=== PATIENT | female | born 1975 | race Caucasian/White ===

== ENCOUNTER → 2018-05-27 11:44 | Outpatient (CLI) | payer BC, SELFPAY ==
[2018-05-27 10:58] VITALS: BMI 27.8
[2018-05-27 14:48] LABS: Cholesterol 232 mg/dL (200); Estradiol 63.1 pg/mL; Follicle Stimulating Hormone 10.8 mIU/mL; Glucose 87 mg/dL (74-106); High Density Lipoprotein 57 mg/dL; Thyroid Stim Hormone (TSH) 1.88 uIU/mL (0.358-3.74); Triglycerides 50 mg/dL; Very Low Density Lipoprotein 10 mg/dL (5-40)
[2018-05-29 15:23] LABS: Vitamin D 1,25-Dihydroxy 53.7 pg/mL (19.9-79.3)
[2018-06-02 12:36] LABS: HPV APTIMA, High Risk Negative (Negative)
--- OUTSIDE RECORDS SUMMARY | 2018-08-28 21:14 | XMS RPT_ITS ---
:1975 Author Organization OHIP Care Team Providers Name Role Phone Anastacia Brooks Attending Unavailable Primay Care Physicia, No Referring Unavailable Anastacia Brooks Attending Unavailable Primay Care Physicia, No Primary Care Unavailable Dino Jenkins Attending Unavailable Primay Care Physicia, No Referring Unavailable Primay Care Physicia, No Primary Care Unavailable Dino Jenkins Attending Unavailable Primay Care Physicia, No Referring Unavailable Primay Care Physicia, No Primary Care Unavailable Dino Jenkins Attending Unavailable Primay Care Physicia, No Referring Unavailable Primay Care Physicia, No Primary Care Unavailable PROBLEMS PROBLEMS DATE TYPE CONDITION / CODE ATTENDING STATUS SOURCE 05/27/2018 Unknown N95.1 - Menopausal Marcanthphoebe, Active [place]mond and female [facility] climacteric states / Hospital N95.1(ICD-10) Repository 05/27/2018 Unknown Z01.411 - Encounter Todd, Active Almond for gynecological [facility] examination (general) Hospital (routine) with Repository abnormal findings / Z01.411(ICD-10) 05/27/2018 Unknown N39.3 - Stress Marcanthony, Active [place] incontinence (female) [facility] (male) / Hospital N39.3(ICD-10) Repository 05/27/2018 Unknown N90.89 - Other Marcanthony, Active Ana specified [facility] noninflammatory Hospital disorders of vulva Repository and perineum / N90.89(ICD-10) 12/06/2017 Unknown M54.9 - Dorsalgia, Gregory Dino Active Ana unspecified / Community M54.9(ICD-10) Hospital Repository 12/06/2017 Unknown L25.9 - Unspecified Gregory Dino Active [place] contact dermatitis, Community unspecified cause / Hospital L25.9(ICD-10) Repository 12/06/2017 Unknown S39.012A - Strain of Dino Jenkins Active [place] muscle, fascia and Community tendon of lower back, Hospital initial encounter / Repository S39.012A(ICD-10) PROCEDURES PROCEDURES No Procedure Records FoundRESULTS RESULTS LIPID PROFILE Collected: 05/27/2018 Status: F Source: ANA 11:57 AM [facility] HOSPITAL REPOSITORY TYPE CODE TESTS RESULT OUT OF RANGE REFERENCE UNITS LAB L501.4900 200 mg/dL High CHOL 232 Result Comment: <200 mg/dL Desirable 200-240 mg/dL Borderline >240 mg/dL High Risk LAB L501.5000 mg/dL Normal TRIG 50 Result Comment: The drugs N-Acetylcysteine and Metamizole may falsely depress this assay. Serum Triglycerides Reference Interval Normal <150 mg/dL Borderline high 150 - 199 mg/dL High 200 - 499 mg/dL Very High > or = 500 mg/dL LAB L501.6400 mg/dL Normal HDL 57 Result Comment: The drugs N-Acetylcysteine and Metamizole may falsely depress this assay. Reference Range HDL <40 mg/dL Low HDL Cholesterol HDL >or= 60 mg/dL High HDL Cholesterol LAB L501.6500 0-130 mg/dL High LDL 165 LAB L501.6600 5-40 mg/dL Normal VLDL 10 Performed By: #### L500.4100, L501.0100, L501.9520, L3100.5125, L3300.1750 #### [facility] [address] [place], [address] GLUCOSE Collected: 05/27/2018 Status: F Source: [facility] 11:57 AM [facility] REPOSITORY TYPE CODE TESTS RESULT OUT OF RANGE REFERENCE UNITS LAB L501.0100 74-106 mg/dL Normal GLU 87 Result Comment: Please note revised GLUCOSE reference range effective 2017. Performed By: #### L500.4100, L501.0100, L501.9520, L3100.5125, L3300.1750 #### [facility] [address] [place], [place], [id number] THYROID STIM HORMONE Collected: 05/27/2018 Status: F Source: [facility] ([facility]) 11:57 AM [facility] REPOSITORY TYPE CODE TESTS RESULT OUT OF RANGE REFERENCE UNITS LAB L501.9520 0.358-3.74 uIU/mL Normal TSH 1.88 Performed By: #### L500.4100, L501.0100, L501.9520, L3100.5125, L3300.1750 #### [facility] [address] [place], [address] FOLLICLE STIMULATING Collected: 05/27/2018 Status: F Source: [facility] HORMONE 11:57 AM [facility] REPOSITORY TYPE CODE TESTS RESULT OUT OF RANGE REFERENCE UNITS LAB L3100.5125 mIU/mL Normal FSH 10.8 Result Comment: NORMAL REFERENCE RANGES FEMALE FOLLICULAR 2.3 - 12.6 mIU/mL MID-CYCLE PEAK 5.2 - 17.5 mIU/mL LUTEAL 1.7 - 12.9 mIU/mL POST-MENOPAUSAL ON MHT 5.9 - 72.8 mIU/mL NOT ON MHT 12.7 - 132.2 mlU/mL MALE 0.7 - 10.8 mIU/mL NEW TEST METHOD AND REFERENCE RANGES OCTOBER 29, 2011 Performed By: #### L500.4100, L501.0100, L501.9520, L3100.5125, L3300.1750 #### [facility] [address] [place], [place], [id number] ESTRADIOL Collected: 05/27/2018 Status: F Source: [facility] 11:57 AM [facility] REPOSITORY TYPE CODE TESTS RESULT OUT OF RANGE REFERENCE UNITS LAB L3300.1750 pg/mL Normal ESTRADIOL 63.1 Result Comment: NORMAL REFERENCE RANGES FEMALE FOLLICULAR 21.4 - 164.8 pg/mL MID-CYCLE PEAK 49.9 - 367.2 pg/mL LUTEAL 40.2 - 259.0 pg/mL POST-MENOPAUSAL ON MHT <11.0 - 462.1 pg/mL NOT ON MHT <11.0 - 58.3 pg/mL MALE <11.0 - 52.5 pg/mL NOTE: [facility] HAS CONFIRMED THE DRUG FULVETRANT (FASLODEX) MAY CAUSE FALSELY ELEVATED ESTRADIOL RESULTS WHEN USING THIS TEST METHOD. IF PATIENT IS TAKING FULVESTRANT AN ALTERNATIVE METHOD SHOULD BE USED TO DETERMINE ESTRADIOL CONCENTRATION. Performed By: #### L500.4100, L501.0100, L501.9520, L3100.5125, L3300.1750 #### [facility] [address] [place], [place], [address] VITAMIN D 1,25-DIHYDROXY Collected: 05/27/2018 Status: F Source: [facility] 11:57 AM [facility] REPOSITORY TYPE CODE TESTS RESULT OUT OF RANGE REFERENCE UNITS LAB L3300.0960 19.9-79.3 pg/mL Normal VITD 1,25 53.7 22168 Result Comment: Performed at: - [facility] [address] [id number] Allied Health Instructor: Debbi Quiros MD, Phone: [phone] Performed By: #### L3300.0960 #### [facility] (refer to report for specific site) refer to report for address and phone number CAPTAIN WAITER/WAITRESS OFFICE VISIT Observed: 05/27/2018 Status: F Source: [facility] REPORT 11:42 AM [facility] REPOSITORY [facility] [place] [address] [place] [address] OFFICE VISIT Date of Service: 05/27/18 MR#: [id number] Acct: [id number] Name: MATTEO GLEASON Rep #: [id number] : 1975 Provider: Anastacia Brooks MD Age/Sex: 42/F Location: [facility] Status: Signed Intake Vital Signs05/27/18 Height 5 ft 3 in 05/27/18 Weight: 157 lb 05/27/18 Body Mass Index (BMI) 27.8 05/27/18 Blood Pressure 138/76 H Intake Visit Reasons: ANNUAL Chief Complaint: est annual Supervisor Twisting Department Required: No Is patient in pain?: No Allergies Opioids - Morphine Analogues Allergy (Verified 05/27/18 10:58) Itching Penicillins Allergy (Verified 05/27/18 10:58) Anaphylaxis MOST PAIN MEDS Adverse Reaction (Uncoded 05/27/18 10:58) Itching Is last menstrual period known: No Post menopausal: No Patient : No : No PFSH Medical History History of PCOS (Acute) History of back problems (Acute) History of headache (Acute) Incontinence (Acute) SOB (shortness of breath) (Acute) Severe headache (Acute) Surgical History H/O tubal ligation (Acute) History of wisdom tooth extraction, class II edentulism (Acute) History of carpal tunnel release (Acute) History of endometrial ablation (Acute) Family History Mother Heart disease Other Cancer Social History Smoking Status: Current every day smoker alcohol intake: current details: social substance use type: does not use caffeine: Yes what type of physical activity do you participate in: none seatbelt use: always do you feel safe at home: Yes additional social history: [employer] [place] Patient is laid off for the winter Pregancy History 4 Elective abortions Hx Para 2 Spontaneous abortions Past Pregnancies Del. DatName GA/WeeksOutcome [facility] Loca[facility]B e ht en ia tn Unknown 1998 Sandra ge Unknown 2003 Gra yson HPI ANNUAL: Details: MATTEO GLEASON is a 42 year old who presents for annual exam. she is struggling with menopausal symptoms. Last PAP: 17 nl History of abnormal PAP: no Last mammogram: ordered History of abnormal mammogram: no Colon cancer screening: Other preventative health care screenings: no Female Reproductive History Cycle Length: >35 Bleeding Duration: 0 Questions: Metorrhagia: No, Sexually active: Yes, Dyspareunia: Yes, PCB: No Menopausal Symptoms: Yes hot flashes, Yes night sweats, Yes weight change, Yes mood changes, Yes difficulty concentrating, Yes sleep problems, No change in libido ROS Const Constitutional: Reports as per HPI and night sweats; denies poor appetite, fatigue, increased appetite, weight gain or weight loss Cardio Card: Denies chest pain Resp Resp: Denies dyspnea or cough GI GI: Reports as per HPI; denies bloating, abdominal pain, constipation, vomiting or nausea : Reports as per HPI, urinary incontinence (stress incontinence. ), other and hot flashes; denies blood in urine, vaginal odor, vaginal itching, vaginal dryness, vaginal discharge (stress), urinary urgency, urinary frequency, pelvic pain, painful urination, difficulty urinating, prolapse symptoms or nipple discharge Skin Skin/Breast: Denies breast pain, breast skin changes, nipple discharge, breast lump or changing lesions Psych Psych: Reports difficulty concentrating; denies change in sex drive Exam Const General: cooperative, healthy appearing, comfortable, no acute distress, well developed, well groomed [facility] Head: normal to inspection, normocephalic Ears: hearing grossly normal bilaterally, external ears normal Nose: external nose normal Face and sinus: normal facial exam Neck Neck: normal visual inspection, full ROM, no lymphadenopathy Thyroid: thyroid normal Chest Chest palpation AND inspection: normal inspection of the chest Breast inspection: normal inspection of the breasts, normal inspection of the axillae Breast palpation: normal palpation of the breasts, normal palpation of the axillae, no axillary lymphadenopathy Resp Effort AND Inspection: normal respiratory effort GI Inspection: normal to inspection, non-distended Palpation: no guarding, soft, no hepatosplenomegaly General: bladder normal to palpation External Female Exam: normal appearance of the urethra, external lesions (right labial pigmented lesions) Urethra: normal appearance of the urethra, normal palpation Speculum Exam - Vagina: normal appearance of the vagina, normal vaginal discharge Speculum Exam - Cervix: normal appearance of the cervix, no cervical discharge, no lesions, nontender Bimanual Exam- Vagina AND Uterus: No cervical tenderness, normal bimanual exam, uterine size normal, bladder normal to palpation, uterine mobility normal, uterine consistency normal, uterus non-tender, no cervical motion tenderness Bimanual Exam- Adnexa, other: normal adnexae, no adnexal masses, adnexae non-tender Skin General: no rashes or lesions noted Neuro General: alert, moves all extremities, no focal motor deficits Extrem General: no pedal edema, normal to inspection Psych Appearance: grossly normal Mental Status: mental status grossly normal Affect: normal affect Speech and Movement: speech and movement normal Attitude: cooperative Assessment AND Plan Problems 1. Climacteric N95.1 fsh estradiol checked, recommend HRT 2. Encounter for gynecological examination with abnormal finding Z01.411 3. Stress incontinence N39.3 urogyn referral 4. Vulvar lesion N90.89 recommend biopsy Plan Cervical cancer screening: pap hpv 2017 nl vulvar biopsy needed discussed risks, benefits, and alternatives for management of symptoms and patient chooses to remain on HRT. discussed with the patient I will continue to prescribe the lowest dose needed to manage symptoms for the duration of desired therapy. will address annually regarding necessity. Breast cancer screening: mamm other health maintenance examination reviewed and orders placed if needed. Encouraged maintenance of a healthy weight and active lifestyle and handout given. Annual exam handout including recommendations for good health guidelines, Calcium/vitamin D recommendations, and basic screening information given. Problem list up to date, see problem list details for any additional plan information. Follow up in one year for annual health maintenance exam or sooner if needed. Orders Orders: Coding Level of Care Code Off vis,est,prev 40-64yrs Diagnoses Climacteric N95.1 Encounter for gynecological examination with abnormal finding Z01.411 Gynecological examination findings: abnormal findings PRESENT Stress incontinence N39.3 Vulvar lesion N90.89 05/27/18 1142 <Electronically signed by Anastacia Brooks MD> Date Anastacia Brooks MD Cosigner Signature: Date (if applicable) CC: PAP IG HPV APTIMA Collected: 05/27/2018 Status: F Source: ANA 16/18,45 11:00 AM [facility] REPOSITORY Order Comment: CYTOLOGY INFORMATION: - CLINICAL INFORMATION: ANNUAL - DATE LMP/MENOPAUSE: N/A - COLLECTION VIAL: Thin Prep Vial - CHARGEMASTER ANALYST SOURCE: CERVICAL - COLLECTION TECHNIQUE: CX BROOM ONLY Specimen Comment: [id number] Specimen Comment: Source.............Cervix Specimen Comment: No. of containers..01 ThinPrep Vial TYPE CODE TESTS RESULT OUT OF RANGE REFERENCE UNITS LAB L7400.0800 . Normal DIAGN Comment Result Comment: NEGATIVE FOR INTRAEPITHELIAL LESION AND MALIGNANCY. LAB L7400.0900 . Normal ADEQ Comment Result Comment: Satisfactory for evaluation. Endocervical and/or squamous metaplastic cells (endocervical component) are present. LAB L7400.1400 . Normal PERFORM Comment Result Comment: Addie Silvestre, Pipe Fitter Maintenance (ASCP) LAB L7400.2575 . Normal TEST METHOD Comment Result Comment: This liquid based ThinPrep(R) pap test was screened with the use of an image guided system. LAB L7400.2600 . Normal . COMM LAB L7400.2700 . Normal PAPSMR Comment Result Comment: The Pap smear is a screening test designed to aid in the detection of premalignant and malignant conditions of the uterine cervix. It is not a diagnostic procedure and should not be used as the sole means of detecting cervical cancer. Both false-positive and false-negative reports do occur. LAB L7400.2760 Negative Normal HPV APTIMA, Negative HR Result Comment: This test detects fourteen high-risk HPV types (16/18/31/33/35/39/45/ 51/52/56/58/59/66/68) without differentiation. Performed at: WB - [facility] [address] [id number] Allied Health Instructor: Dorinda Rodriguez MD, Phone: [phone] Performed at: =G - [facility] [address]Br[address] [place], [place] [id number] Allied Health Instructor: Dorinda Rodriguez MD, Phone: [phone] Performed By: #### L7400.0280 #### [facility] (refer to report for specific site) refer to report for address and phone number URGENT CARE VISIT Observed: 12/06/2017 Status: F Source: [facility] REPORT 4:[address] [facility] [address] [place] [address] [address] [place] [address] OFFICE VISIT Date of Service: 12/06/17 MR#: [id number] Acct: [id number] Name: MATTEO GLEASON Rep #: [id number] : 1975 Provider: Dino FABIAN Age/Sex: 42/F Location: [facility] Status: Signed Intake Vital Signs12/06/17 Height 5 ft 4 in Intake Visit Reasons: LOW BACK PAIN Allergies Opioids - Morphine Analogues Allergy (Verified 12/06/17 09:05) Itching Penicillins Allergy (Verified 12/06/17 09:05) Anaphylaxis MOST PAIN MEDS Adverse Reaction (Uncoded 12/06/17 09:05) Itching Medications ibuprofen 200 mg tablet 200 mg PO ONCE 05/13/17 [History Confirmed 12/06/17] cyclobenzaprine 5 mg tablet 5 mg PO TID PRN #30 tab 12/06/17 [Rx Confirmed 12/06/17] prednisone 10 mg tablet 10 mg PO QDAY 12 Days #30 tab 12/06/17 [Rx Confirmed 12/06/17] [facility] Medical History Incontinence (Acute) SOB (shortness of breath) (Acute) Severe headache (Acute) Surgical History History of carpal tunnel release (Acute) History of endometrial ablation (Acute) Tubal ligation status (Acute) Family History Other Cancer Social History Smoking Status: Current every day smoker alcohol intake: never HPI HPI Details: MATTEO GLEASON, is a 42 F who presents to the office today for right-sided low back pain for the past 2 days. Patient reports noticing the pain shortly after getting home from work 2 days ago and has since tried warm compresses as well as ibuprofen and Tylenol for the pain with no relief. She reports her pain as 8-9 out of 10. Patient does report a history of L5 degenerative changes as well as other episodes of low back pain. Additionally she states that she has pain radiating from her back to her right middle thigh however denies any numbness or tingling. She also denies bowel and bladder dysfunction. No other associated symptoms or alleviating/aggravating factors. ROS Const Constitutional: No chills, fever(s), fatigue or abnormal sleep pattern ENT ENT: No neck pain Musc Musculoskeletal: Positive for abnormal walking, back pain and limited range of motion; no deformity, joint swelling, numbness, tingling or neck pain Skin Skin: No wounds or lesions Neuro Neurology: Positive for abnormal walking; no behavioral changes, confusion, numbness or tingling Psych Psychiatric: No behavioral changes, No confusion, No abnormal sleep pattern Endo Endocrine: No fatigue Exam Const General: cooperative, healthy appearing Musc Musculoskeletal: Yes decreased ROM; no joint tenderness Cervical Spine: normal cervical lordosis and cervical ROM normal Thoracic/Lumbar Spine: straight leg raise negative bilaterally Other: Patient uncomfortable from sit to stand position with antalgic gait. Tenderness to palpation of the right lower back lateral to the spine with several small muscle spasms to the right lower back. Limited range of motion due to pain intolerance. Skin General: no rashes or lesions noted Neuro General: alert, CN's II-XI intact bilaterally Psych Appearance: grossly normal Mental Status: mental status grossly normal Office Meds ketorolac Performing Provider: RUI Cotton Administered by: Larissa Rivera on 12/06/17 09:41 Dose Route Admin Location Lot Number Expiration Date NDC Manager Employee Relations 60 mg IM left gluteal [id number] 06/10/19 1098-4773-01 HOSPIRA Assessment AND Plan Problems 1. Strain of lumbar region, initial encounter S39.012A Status Acute Plan Toradol IM in the office with cyclobenzaprine and prednisone as prescribed today. Encouraged to get plenty of rest and use Tylenol or Ibuprofen (unless contraindicated) for comfort. Patient also educated on other symptomatic management techniques. To be seen in 7-10 days if no improvement; sooner if worsening of symptoms. Advised of potential red flags when appropriate report to the ED. Patient verbalized understanding of all the above. This note was generated with eCert dictation software. It may contain incorrect words, spelling, and punctuation that were not noted in checking the note before signing. Orders Orders: Medications New: cyclobenzaprine May take 1-2 tabs 5 mg PO TID PRN muscle spasm S39.012A RUI Cotton every 8 hours as needed Discontinued: ketorolac Discontinued Reason: Office Hsholul00 mg (4 mL) IM ONCE M54.9 Larissa Rivera ion has been Documented as given Coding Level of Care Code Off vis,est,level 3 Diagnoses Strain of lumbar region, initial encounter S39.012A Encounter type: initial encounter 12/06/17 1649 <Electronically signed by Dino FABIAN> Date Dino FABIAN Cosigner Signature: Date (if applicable) CC: URGENT CARE VISIT Observed: 10/15/2017 Status: F Source: [facility] REPORT 12:25 PM [facility] REPOSITORY [facility] [address] [place] [id number] OFFICE VISIT Date of Service: 10/15/17 MR#: [id number] Acct: [id number] Name: MATTEO GLEASON Rep #: [id number] : 1975 Provider: Dino FABIAN Age/Sex: 42/F Location: [facility] Status: Signed Intake Vital Signs10/15/17 Height 5 ft 4 in 10/15/17 Weight: 157 lb 10/15/17 Body Mass Index (BMI) 26.9 10/15/17 Blood Pressure 122/74 Intake Visit Reasons: LEFT FOOT SWELLING Supervisor Twisting Department Required: No Is patient in pain?: Yes Allergies Opioids - Morphine Analogues Allergy (Verified 10/15/17 10:46) Itching Penicillins Allergy (Verified 10/15/17 10:46) Anaphylaxis MOST PAIN MEDS Adverse Reaction (Uncoded 10/15/17 10:46) Itching Medications ibuprofen 200 mg tablet 200 mg PO ONCE 05/13/17 [History Confirmed 10/15/17] PFSH Medical History Incontinence (Acute) SOB (shortness of breath) (Acute) Severe headache (Acute) Surgical History History of carpal tunnel release (Acute) History of endometrial ablation (Acute) Tubal ligation status (Acute) Family History Other Cancer Social History Smoking Status: Current every day smoker alcohol intake: never HPI HPI Details: MATTEO GLEASON, is a 42 F who presents to the office today for left foot pain and swelling for the past week. Patient states that last week she was out gardening and then the next morning started having left foot pain and swelling. She states that the pain and swelling is particularly over the second through fourth metatarsal area. She denies any loss in range of motion or function and is able to ambulate without difficulty. No numbness or tingling. No other associated symptoms or alleviating/aggravating factors. ROS Const Constitutional: No chills, fever(s), fatigue or abnormal sleep pattern Musc Musculoskeletal: Positive for joint pain; no abnormal walking, deformity, radiating pain into limb, tingling or numbness Skin Skin: No wounds or lesions Neuro Neurology: No behavioral changes, confusion, abnormal walking, tingling or numbness Psych Psychiatric: No behavioral changes, No confusion, No abnormal sleep pattern Endo Endocrine: No fatigue Exam Const General: cooperative, healthy appearing Musc Musculoskeletal: Yes joint tenderness; no joint redness, joint warmth or decreased ROM Skin General: no rashes or lesions noted Neuro General: alert, CN's II-XI intact bilaterally Extrem Other: Pain to palpation over the distal left second through fourth metatarsals. No deformity, crepitus or ecchymosis. There is a very mild amount of swelling. Full range of motion and sensation to the foot. Psych Appearance: grossly normal Mental Status: mental status grossly normal Assessment AND Plan Problems 1. Strain of left foot, initial encounter S96.912A Status Acute Plan Patient advised of RICE techniques. Advised to follow-up with PCP or orthopedics in 7-10 days if no better or sooner if worse. Patient advised of potential red flags when appropriate report to the ED. Patient verbalized understanding of all the above. This note was generated with eCert dictation software. It may contain incorrect words, spelling, and punctuation that were not noted in checking the note before signing. Coding Level of Care Code Off vis,est,level 3 Diagnoses Strain of left foot, initial encounter S96.912A Encounter type: initial encounter 10/15/17 1225 <Electronically signed by Dino FABIAN> Date Dino FABIAN Cosigner Signature: Date (if applicable) CC: URGENT CARE VISIT Observed: 08/11/2017 Status: F Source: [facility] REPORT 1:51 PM [facility] [address] [place] [address] OFFICE VISIT Date of Service: 08/11/17 MR#: [id number] Acct: [id number] Name: ROSIBELMATTEO K Rep #: [id number] : 1975 Provider: Dino FABIAN Age/Sex: 41/F Location: [facility] Status: Signed Intake Vital Signs08/11/17 Height 5 ft 4 in Intake Visit Reasons: EARACHE Is patient in pain?: Yes Allergies Opioids - Morphine Analogues Allergy (Verified 08/11/17 13:28) Itching Penicillins Allergy (Verified 08/11/17 13:28) Anaphylaxis MOST PAIN MEDS Adverse Reaction (Uncoded 08/11/17 13:28) Itching Medications ibuprofen 200 mg tablet 200 mg PO ONCE 05/13/17 [History Confirmed 08/11/17] [facility] Medical History Incontinence (Acute) SOB (shortness of breath) (Acute) Severe headache (Acute) Surgical History History of carpal tunnel release (Acute) History of endometrial ablation (Acute) Tubal ligation status (Acute) Family History Other Cancer Social History Smoking Status: Current every day smoker alcohol intake: never HPI HPI Details: MATTEO GLEASON, is a 41 F who presents to the office today for right ear pain for the past 2 days. Patient states that the pain has been increasing and feels as if there is fluid behind her ear drawn. She is concerned for possible ear infection as she has a history of recurrent infections. She denies any otorrhea or hearing change/loss. She denies fever, chills, sweats. No nausea, vomiting, diarrhea. No other associated symptoms or alleviating/aggravating factors. ROS Const Constitutional: No chills, fever(s), fatigue or abnormal sleep pattern ENT ENT: Positive for ear pain and ear pressure; no ear discharge, nasal congestion, nasal discharge or sore throat Resp Respiratory: No shortness of breath or chest congestion Cardio Cardiology: No chest pain at rest, chest pain with exertion or shortness of breath Skin Skin: No wounds or lesions Neuro Neurology: No behavioral changes or confusion Psych Psychiatric: No behavioral changes, No confusion, No abnormal sleep pattern Endo Endocrine: No fatigue Exam Const General: cooperative, healthy appearing [facility] Head: normocephalic, atraumatic Ears: hearing grossly normal bilaterally, TM abnormal with fluid behind the TM on the right, EAC's normal Nose: external nose normal Face and sinus: face symmetric Mouth: oral mucosae normal Throat: posterior oropharynx normal Eyes General: appearance normal, both eyes and all related structures Pupils: PERRL Resp Effort AND Inspection: normal respiratory effort Auscultation: Bilateral: Clear to Auscultation Cardio Rate: regular rate Rhythm: regular rhythm Heart Sounds: S1 normal, S2 normal Skin General: no rashes or lesions noted Neuro General: alert, CN's II-XI intact bilaterally Psych Appearance: grossly normal Mental Status: mental status grossly normal Assessment AND Plan Problems 1. Fluid level behind tympanic membrane of right ear H65.91 Status Acute Plan Patient advised to start taking an antihistamine twice daily as well as Nasacort once daily for the next 7 days. Advised of potential red flags when appropriate report to ED. Patient verbalized understanding of all the above. This note was generated with eCert dictation software. It may contain incorrect words, spelling, and punctuation that were not noted in checking the note before signing. Coding Level of Care Code Off vis,est,level 3 Diagnoses Fluid level behind tympanic membrane of right ear H65.91 08/11/17 1351 <Electronically signed by Dino FABIAN> Date Dino FABIAN Cosigner Signature: Date (if applicable) CC: ALLERGIES ALLERGIES DATE TYPE / CODE NAME / CODE REACTION SEVERITY SOURCE 05/27/2018 Drug Opioids - Itching Unknown Ana Allergy/132766014( Morphine Community SNOMED CT) Analogues/F00 Hospital [id number](RXNOR Repository M) 05/27/2018 Drug Penicillins/F Anaphylaxis Unknown Ana Allergy/175215431( [id number](RXN Community SNOMED CT) ORM) Hospital Repository 05/27/2018 Miscellaneous MOST PAIN Itching Unknown Ana Allergy/428269816( MEDS Community SNOMED CT) Hospital Repository ENCOUNTERS ENCOUNTERS ADMIT/DISCHARGE ACCOUNT ADMITTING ENCOUNTER LOCATION SOURCE NUMBER CLASS 05/27/2018 [id number] Ambulatory Ana Ana 7 [facility] Hospital ing:PAVLAB Repository 05/27/2018/ [id number] Ambulatory BMSBuilding:B Ana 8 3 [facility] Repository 12/06/2017/ [id number] Ambulatory BMSBuilding:B [place] 8 9 [facility] Repository 10/15/2017/ [id number] Ambulatory BMSBuilding:B [place] 8 2 MS[facility] Repository 08/11/2017/ [id number] Ambulatory BMSBuilding:B [place] 8 2 MS.NOW [facility] Repository PAYERS PAYERS ENCOUNTER GUARANTOR PAYER SUBSCRIBER SOURCE 05/27/2018 JOSE J Primary JOSE J [place] [id number] DAYANNA Insurance:ANTHEMPolic WISEDOB: [facility] Number: [id number] Hospital 404[address]Gzb: 330 [id number] Repository [phone] () Date:[id number] [address] [place] [address] 46742SK: 05/27/2018 Secondary NOT GIVENUNK Ana Insurance:SELF PAY [facility] [place] Number: Effective Repository Date:2018-05-27 05/27/2018 JOSE J Primary JOSE J Ana [id number] DAYANNA Insurance:ANTHEMPolic WISEDOB: [facility] Number: [id number] Hospital 557[address]Lwc: (330 [id number] Repository [phone] () Date:[id number], [place] [address]RW: 05/27/2018 Secondary NOT GIVENUNK [place] Insurance:SELF PAY [facility] [place] Number: Effective Repository Date:2018-05-27 12/06/2017 JOSE J Primary JOSE J [place] [id number] DAYANNA Insurance:ANTHEMPolic WISEDOB: [facility] Number: [id number] Hospital [id number]: (330) [id number] Repository [phone] () Date:[id number] [address], [place] [address]DD: 12/06/2017 Secondary NOT GIVENUNK [place] Insurance:SELF PAY [facility] [place] Number: Effective Repository Date:2017-12-06 10/15/2017 JOSE J Primary JOSE J Ana [id number] DAYANNA Insurance:ANTHEMPolic WISEDOB: [facility] Number: [id number] Hospital [address]Hwx: (330 [id number] Repository [phone] () Date:[id number], [place] [address]AI: 10/15/2017 Secondary NOT GIVENUNK [place] Insurance:SELF PAY [facility] [place] Number: Effective Repository Date:2017-10-15 08/11/2017 JOSE J Primary JOSE J Ana [id number] DAYANNA Insurance:ANTHEMPolic WISEDOB: [facility] Number: [id number] Hospital [address]Wgp: (315) [id number] Repository [phone] () Date:[id number], [place] [address]KS: 08/11/2017 Secondary NOT GIVENUNK Ana Insurance:SELF PAY [facility] [place] Number: Effective Repository Date:2017-08-11
== END ==
PROVIDERS: Visit Provider Obstetrics & Gynecology
DX: N95.1 Menopausal and female climacteric states (principal); Z12.4 Encounter for screening for malignant neoplasm of cervix
CPT/HCPCS: 36415; 80061; 82652; 82670; 82947; 83001; 84443; 87624; 88175; G0145

== ENCOUNTER 2018-07-18 16:15 | Emergency (ER) | payer BC, SELFPAY ==
[2018-05-27 10:58] VITALS: BMI 27.8
[2018-07-18 16:16] VITALS: BP 136/70; PULSE 78; RESP 16; TEMP 37.1; O2SAT 100; BMI 28.3
--- NOTE | 2018-07-18 16:42 | CT_ITS ---
STUDY: CT ABDOMEN AND PELVIS WITHOUT CONTRAST REASON FOR EXAM: Female, 42 years old. Right lower quadrant pain RADIATION DOSAGE (If Supplied By Facility): CTDIvol = ( 8.27 ) mGy, DLP = ( 386.48 ) mGycm TECHNIQUE: Transaxial images were obtained from the dome of the diaphragm to the symphysis pubis without oral contrast, and without intravenous contrast. Sagittal and coronal images were reconstructed. Individualized dose optimization techniques were used for this CT. COMPARISON: January 30, 2017 FINDINGS: The visualized lung bases are unremarkable. The visualized portions of the heart are within normal limits. Normal liver. Normal gallbladder and extrahepatic biliary system. Normal spleen. Normal pancreas. Normal bilateral adrenal glands. Normal right kidney. Normal left kidney. Normal visualized stomach. Normal small intestine. Diffuse fecal retention seen within the colon The appendix is visualized and appears normal. Normal abdominal aorta. Normal inferior vena cava. Normal retroperitoneum. The uterus is midline in location depressing the dome of the bladder. There is a Novus ring which appears to be localized to the midline of the pelvis overlying the bladder which was previously seen in the left adnexal region and has possibly migrated or slipped out of position. Clinical correlation is recommended in this regard as to significance of this finding. Normal abdominal wall. Lumbar spine demonstrates mild spondylosis No other significant change since prior exam CT/Abdomen/Pelvis without Cont IMPRESSION: No evidence for hydronephrosis or ureteral calculus. No evidence for acute appendicitis. There is a change in position of previously noted Novus ring possibly representing migration of the ring of uncertain clinical significance. Electronically Signed: Tony Yadav MD at 18:08 EST , Service support ,
[2018-07-18] MEDS: Ondansetron 4 MG/2 ML Vial IV (16:48)
[2018-07-18] MEDS: 0.9% Normal Saline 1,000 ML 1000 ML IV (16:48)
[2018-07-18] MEDS: HYDROmorphone 1 MG/ML Syringe IV (16:50)
--- NOTE | 2018-07-18 16:57 | ED.VISSUMM ---
- ER Visit Summary Date of Service: 07/18/18 Chief Complaint: Abdominal pain History of Present Illness: The patient is a 42 F presenting with right lower quadrant abdominal pain. She states that this started 2 days ago. She states that it suddenly worsened today. She has had nausea and vomiting. She has had constipation. She complains of dysuria. She denies fever. She states she has had ovarian cysts in the past. She tried her son's leftover Percocet prior to arrival with no relief. Denies other complaints. Physical Examination: Vitals are stable. Patient is afebrile. Alert moderate distress. HEENT exam is unremarkable. Neck is supple. Lungs are clear and equal bilaterally. Heart is regular rate and rhythm. Abdomen is soft right lower quadrant tenderness, voluntary guarding, no rebound Extremities are unremarkable. Skin is warm and dry. No focal neurologic deficit. Remainder of exam is unremarkable. Emergency Department Course and Treatment: Patient was given Dilaudid, Zofran. CBC, chemistries unremarkable. Urinalysis unremarkable. CT abdomen pelvis shows no evidence for hydronephrosis or ureteral calculus. No evidence for acute appendicitis. There is a change in position of previously noted Novus ring possibly representing migration of the ring of uncertain clinical significance. Pelvic ultrasound shows no adnexal masses. No contraceptive device identified. Metallic densities evident on CT from earlier today are most compatible with surgical ligation clips, perhaps fallopian tube. Per technologist, patient denies contraceptive ring/no Nuvaring (but reports tubal ligation). Question tubal patency/fertility given midline position of the clips anterior/inferior (between uterus and bladder) to the urinary bladder, and change in position since prior CT of 01/30/2017. Uterine fibroids. On reevaluation, patient has improvement of her pain. Discussed with Dr. Brooks, patient will follow-up in the office. She is advised to return to ED if worsening complaints. Disposition: Discharge home Impression: Abdominal pain This note was generated with [employer] dictation software. It may contain incorrect words, spelling, and punctuation that were not noted in review of the chart prior to signing ED Disposition - Plan for ED Patient: Instructions: ED Abdominal Pain Unkn Cause Prescriptions: Oxycodone HCl/Acetaminophen [Percocet 5/325] 1 tablet PO Q6H PRN PRN 3 Days #12 tablet PRN Reason: Pain Ondansetron [Zofran Odt] 4 mg PO Q8H PRN PRN #10 tablet PRN Reason: Nausea Referrals: Anastacia Brooks MD [STAFF PHYSICIAN] -
--- NOTE | 2018-07-18 17:00 | ED.DCSUM_ITS ---
- ER Visit Summary Date of Service: 07/18/18 Chief Complaint: Abdominal pain History of Present Illness: The patient is a 42 F presenting with right lower quadrant abdominal pain. She states that this started 2 days ago. She states that it suddenly worsened today. She has had nausea and vomiting. She has had constipation. She complains of dysuria. She denies fever. She states she has had ovarian cysts in the past. She tried her son's leftover Percocet prior to arrival with no relief. Denies other complaints. Physical Examination: Vitals are stable. Patient is afebrile. Alert moderate distress. HEENT exam is unremarkable. Neck is supple. Lungs are clear and equal bilaterally. Heart is regular rate and rhythm. Abdomen is soft right lower quadrant tenderness, voluntary guarding, no rebound Extremities are unremarkable. Skin is warm and dry. No focal neurologic deficit. Remainder of exam is unremarkable. Emergency Department Course and Treatment: Patient was given Dilaudid, Zofran. CBC, chemistries unremarkable. Urinalysis unremarkable. CT abdomen pelvis shows no evidence for hydronephrosis or ureteral calculus. No evidence for acute appendicitis. There is a change in position of previously noted Novus ring possi shawna representing migration of the ring of uncertain clinical significance. Pelvic ultrasound shows no adnexal masses. No contraceptive device identified. Metallic densities evident on CT from earlier today are most compatible with surgical ligation clips, perhaps fallopian tube. Per technologist, patient denies contraceptive ring/no Nuvaring (but reports tubal ligation). Question t ubal patency/fertility given midline position of the clips anterior/inferior (between uterus and bladder) to the urinary bladder, and change in position since prior CT of 01/30/2017. Uterine fibroids. On reevaluation, patient has improvement of her pain. Discussed with Dr. Brooks, patient will follow-up in the office. She is advised to return to ED if worsening complaints. Disposition: Discharge home Impression: Abdominal pain This note was generated with [employer] dictation software. It may contain incorrect words, spelling, and punctuation that were not noted in review of the chart prior to signing ED Disposition - Plan for ED Patient: Instructions: ED Abdominal Pain Unkn Cause Prescriptions: Oxycodone HCl/Acetaminophen [Percocet 5/325] 1 tablet PO Q6H PRN PRN 3 Days #12 tablet PRN Reason: Pain Ondansetron [Zofran Odt] 4 mg PO Q8H PRN PRN #10 tablet PRN Reason: Nausea Referrals: Anastacia Brooks MD [STAFF PHYSICIAN] -
[2018-07-18 17:08] LABS: Anion Gap 10 (5-15); BUN 14 mg/dL (7-18); Calcium,Total 9.1 mg/dL (8.5-10.1); Chloride 108 mmol/L (98-107); Creatinine, Serum 0.87 mg/dL (0.55-1.02); EST Glomerular Filtration Rate 75 mL/min (>60); Est Glom Filt Rate - Afr Amer 91 mL/min (>60); Estimated Creatinine Clearance 68.97 ml/min; Glucose 100 mg/dL (74-106); Potassium 3.7 mmol/L (3.5-5.1); Sodium Level 139 mmol/L (136-145)
[2018-07-18 17:11] LABS: Absolute Lymphocyte Count 1.74 X10^3/ul (0.83-4.51); Absolute Neutrophil Count 8.3 X10^3/uL (2.0-7.7); Basophil# 0.04 X10^3/uL; Basophil% 0.4 % (0-1); Eosinophil# 0.13 X10^3/uL; Eosinophils% 1.2 % (0-5); Hematocrit 40.8 % (37-47); Hemoglobin 13.6 g/dl (12.0-15.0); Lymphocyte # 1.74 X10^3/ul (4.0); Lymphocyte % 15.4 % (19-41); Mean Corp Hgb Conc 33.3 g/gl (32-36); Mean Corpuscular Hgb 29.4 pg (27.0-32.0); Mean Corpuscular Volume 88.1 fL (81-99); Mean Platelet Vol. 10.3 fl (6.2-12.0); Monocyte% 9.7 % (0-10); Neutrophil # 8.27 X10^3/uL (2.7-7.7); Neutrophil % 73.1 % (47-70); Platelet Count 319 K/mm3 (150-450); RBC Distribution Width CV 13.8 % (11.6-14.6); RBC Distribution Width SD 43.9 fl (35.1-43.9); Red Blood Count 4.63 M/mm3 (4.2-5.4); White Blood Count 11.3 K/mm3 (4.4-11.0)
[2018-07-18 17:14] LABS: POSITIVE COUNT NO; POSITIVE DIFFERENTIAL NO; POSITIVE MORPHOLOGY NO
[2018-07-18 17:40] LABS: Red Blood Cells-Urine 0 SEEN /hpf (0-5)
[2018-07-18 17:41] LABS: Color, Urine Yellow (Yellow); Glucose, Dipstick Normal (Normal); Ketone-Dipstick 15 mg/dl (Negative); Leukocyte Esterase-Dipstick 25 /ul (Negative); Nitrite-Dipstick Negative (Negative); Occult Blood-Urine Negative /ul (Negative); Protein-Dipstick Negative (Negative); Urine Bilirubin Dipstick Negative (Negative); Urine Clarity Clear (Clear); Urine Urobilinogen Normal (Normal)
[2018-07-18 18:17] LABS: Bacteria RARE /hpf (None Seen); Mucous, Urine 1+ /hpf (<or=2+)
[2018-07-18 18:18] LABS: Squamous Epithelial Cells - UA 0-5 SEEN /hpf (5-10); White Blood Cells 0-5 SEEN /hpf (0-5)
--- NOTE | 2018-07-18 18:31 | US_ITS ---
STUDY: ULTRASOUND OF THE FEMALE PELVIS - COMPLETE REASON FOR EXAM: Female, 42 years old. Pelvic pain LMP: TECHNIQUE: Transvaginal imaging initially performed with subsequent transabdominal imaging for better characterization of the uterine fundus. TECHNICAL QUALITY: Adequate. COMPARISON: CT from earlier today. FINDINGS: The uterus is anteverted and is in a midline position. The uterus measures 8.4 x 5.5 x 4.0 cm. There is a Nabothian cyst of the cervix. The endometrium measures 3 mm in thickness, and is hyperechoic. There is no demonstrated endometrial mass. Isoechoic to hypoechoic masses of the uterus identified measuring up to 2.4 cm. I.U.D. - The patient does not have an I.U.D. The right ovary is visualized. The right ovary measures 3.6 x 1.6 x 1.5 cm. Abdominal follicle measures 1.3 cm. There is no visualized right adnexal mass or complex lesion. There is normal arterial and normal venous vascularity. The left ovary is visualized. The left ovary measures 2.9 x 1.7 x 1.3 cm. There are multiple follicles of the left ovary without a dominant cyst. There is no visualized left adnexal mass or complex lesion. There is normal arterial and normal venous vascularity. There is no fluid in the cul-de-sac. Visualized urinary bladder is unremarkable. US/Transvaginal Non- IMPRESSION: 1. No adnexal masses. No contraceptive device identified. Metallic densities evident on CT from earlier today are most compatible with surgical ligation clips, perhaps fallopian tube. Per technologist, patient denies contraceptive ring/no Nuvaring (but reports tubal ligation). Question tubal patency/fertility given midline position of the clips anterior/inferior (between uterus and bladder) to the urinary bladder, and change in position since prior CT of 01/30/2017 2. Uterine fibroids. Electronically Signed: Teja Corona MD at 19:42 EST , Service support ,
[2018-07-18] MEDS: HYDROmorphone 0.5 MG/0.5 ML SYRINGE IV (19:21)
[2018-07-18 20:05] VITALS: BP 128/79; PULSE 78; RESP 16; O2SAT 97
--- NOTE | 2018-07-18 20:50 | ED.DEP ---
ED Disposition - Plan for ED Patient: Instructions: ED Abdominal Pain Unkn Cause Prescriptions: Oxycodone HCl/Acetaminophen [Percocet 5/325] 1 tablet PO Q6H PRN PRN 3 Days #12 tablet PRN Reason: Pain Ondansetron [Zofran Odt] 4 mg PO Q8H PRN PRN #10 tablet PRN Reason: Nausea Referrals: Anastacia Brooks MD [STAFF PHYSICIAN] -
[2018-07-18 21:08] VITALS: BP 108/59; PULSE 74; RESP 16; O2SAT 98
== END 2018-07-18 21:09 | disposition home or self-care (01) ==
PROVIDERS: Emergency Provider Emergency Medicine
DX: R10.31 Right lower quadrant pain (principal); R11.2 Nausea with vomiting, unspecified; K59.00 Constipation, unspecified; R30.0 Dysuria; D25.9 Leiomyoma of uterus, unspecified; Z72.0 Tobacco use
CPT/HCPCS: 74176; 76830; 80048; 81001; 85025; 93976; 96361; 96374; 96375; 96376; 99283; J7030; A4216; J2405

== ENCOUNTER 2018-08-03 20:12 | Emergency (ER) | payer BC, SELFPAY ==
[2018-07-21 11:27] VITALS: BMI 28.3
[2018-08-03 20:14] VITALS: BP 138/53; PULSE 90; RESP 20; TEMP 37.2; O2SAT 100; BMI 28.5
--- NOTE | 2018-08-03 20:27 | ED.RN ---
PT CRYING OUT, ASKING FOR HIS , TEARFUL. EMOTIONAL SUPPORT GIVEN. NIGHT MEDS ORDERED.
[2018-08-03 20:56] LABS: Absolute Lymphocyte Count 2.38 X10^3/ul (0.83-4.51); Absolute Neutrophil Count 11.1 X10^3/uL (2.0-7.7); Basophil# 0.05 X10^3/uL; Basophil% 0.3 % (0-1); Eosinophil# 0.18 X10^3/uL; Eosinophils% 1.2 % (0-5); Hematocrit 40.6 % (37-47); Hemoglobin 13.3 g/dl (12.0-15.0); Lymphocyte # 2.38 X10^3/ul (4.0); Mean Corp Hgb Conc 32.8 g/gl (32-36); Mean Corpuscular Hgb 29.3 pg (27.0-32.0); Mean Corpuscular Volume 89.4 fL (81-99); Monocyte% 7.4 % (0-10); Neutrophil # 11.12 X10^3/uL (2.7-7.7); Neutrophil % 74.9 % (47-70); Platelet Count 298 K/mm3 (150-450); RBC Distribution Width CV 14.1 % (11.6-14.6); RBC Distribution Width SD 46.2 fl (35.1-43.9); Red Blood Count 4.54 M/mm3 (4.2-5.4); White Blood Count 14.9 K/mm3 (4.4-11.0)
[2018-08-03 20:58] LABS: POSITIVE COUNT NO; POSITIVE DIFFERENTIAL NO; POSITIVE MORPHOLOGY NO
[2018-08-03] MEDS: HYDROmorphone 1 MG/ML Syringe IV (21:04)
[2018-08-03] MEDS: Ondansetron 4 MG/2 ML Vial IV (21:04)
--- NOTE | 2018-08-03 21:08 | ED.VISSUMM ---
- ER Visit Summary Date of Service: 08/03/18 Chief Complaint: Pelvic pain History of Present Illness: The patient is a 42 F who presents with pelvic and lower abdominal pain that became worse today. Patient describes the pain as cramping. Patient states the pain is over the suprapubic area and radiates into her back. Patient admits to nausea and vomiting from the pain. Patient states she has been having some vaginal spotting. Patient denies any other vaginal bleeding. Patient denies any vaginal discharge. Patient denies any urinary complaints. Patient states she is scheduled for a hysterectomy in 2 weeks. Patient has a history of hemorrhagic ovarian cyst. Physical Examination: Vital signs are stable. Patient is afebrile. Patient is anxious due to the pain. Oral mucosa is pink and moist. Neck is supple. There is no JVD noted. Heart was regular rate and rhythm. Lungs are clear and equal bilateral. Abdomen is soft. Bowel sounds are normal. There is lower abdominal tenderness. There is no rebound noted. There is some voluntary guarding noted. Cranial nerves II through XII are intact. There are no focal motor or sensory deficits noted. Test Results: CBC showed a mild leukocytosis of 14.9. Emergency Department Course and Treatment: Patient was given Zofran, Dilaudid, and Benadryl here. Patient states she has been able to tolerate Dilaudid in the past with Benadryl. Patient states she is able to tolerate Percocet at home when she takes Benadryl with it. Patient was given a prescription for a short course of Percocet. Patient was instructed to follow-up with her [facility] in 1-2 days. Patient understood and was agreeable with the plan. All questions were answered. Disposition: Discharge home Impression: Abdominal pain This note was generated with [employer] dictation software. It may contain incorrect words, spelling, and punctuation that were not noted in review of the chart prior to signing ED Disposition - Plan for ED Patient: Disposition: Home or Assisted Living Diagnosis: Abdominal pain Instructions: ED Pelvic Pain [facility] Prescriptions: Oxycodone HCl/Acetaminophen [Percocet 5/325] 1 tab PO Q6H PRN PRN 3 Days #12 tab PRN Reason: Pain Referrals: Care Physician,No Primary [Primary Care Provider] - 1-2 Days if not improving
[2018-08-03] MEDS: DiphenhydrAMINE 50 MG/ML Syringe 25 MG IV (21:09)
== END 2018-08-03 22:12 | disposition home or self-care (01) ==
PROVIDERS: Emergency Provider Emergency Medicine
DX: R10.30 Lower abdominal pain, unspecified (principal); R11.2 Nausea with vomiting, unspecified
CPT/HCPCS: 85025; 96374; 96375; 99284; J7030; A4216; J2405

== ENCOUNTER 2018-08-07 08:35 | Day surgery (SDC) | payer BC, SELFPAY ==
[2018-07-21 11:27] VITALS: BMI 28.3
[2018-08-07] VITALS (16 sets, daily range): BP systolic 94–138; BP diastolic 56–81; PULSE 62–81; RESP 14–24; TEMP 36.2–37; O2SAT 96–100; BMI 28.5
--- NOTE | 2018-08-07 | IMM_PTH ---
PATIENT: MATTEO GLEASON [place] [facility] [id number] AGE/SX: 42/F ROOM: RE08/07/[address]: Dr. Anastacia Brooks MD : 1975 BED: DIS: 08/08/2018 SPEC #: [id number] RECD: 08/11/18 14:38 STATUS: SHIELA EMMA #: [id number] KASSY: 08/07/18 00:[address]: Anastacia Brooks DEPT: IMMUNOHISTOCHEMISTRY RECD BY: Wendy Phelps Tissues: B - Vulva, NOS Procedures: p16 (initial) KI-67 (add) PHYSICIAN & INSTITUTION [place] [id number] SPECIMEN INFORMATION: Tissue Source: B - Vulvar biopsy Clinical Info: Acute on chronic pelvic pain, vulvar lesion Specimen Number: [id number] CPT code: 71163, 26889 METHODOLOGY: Deparaffinized sections of prefer/formalin-fixed tissue or PAP/DQ stained slides are incubated with monoclonal/polyclonal antibodies/oligonucleotide probes. Localization is made via biotin free immunoperoxidase method. Appropriate controls are performed and reacted as expected. Results on target cell population are indicated in the following table: RESULTS: ANTIBODY / CLONE RESULT Block B P16 (E6H4) negative Ki-67 (30-9) negative These tests were developed and their performance characteristics determined by [facility]. They may not have been cleared or approved by the U.S. Food and Drug Administration. The FDA has determined that such clearance or approval is not necessary. INTERPRETATION: B. Vulvar biopsy: No evidence of dysplasia. AM:parker 08/12/18
--- NOTE | 2018-08-07 08:41 | ED.RN ---
offered pt wheelchair multiple times. pt refuses stating it is too hard to get up and down
[2018-08-07] MEDS: DiphenhydrAMINE 50 MG/ML Syringe 25 MG IV ×2 (08:54→10:48)
[2018-08-07] MEDS: 0.9% Normal Saline 1,000 ML 1000 ML IV (08:54)
[2018-08-07] MEDS: Ondansetron 4 MG/2 ML Vial IV (08:54)
[2018-08-07] MEDS: HYDROmorphone 1 MG/ML Syringe IV ×2 (08:55→10:49)
--- NOTE | 2018-08-07 08:56 | ED.VISSUMM ---
- ER Visit Summary Date of Service: 08/07/18 Chief Complaint: Abdominal pain History of Present Illness: The patient is a 42 F who presents with abdominal pain that became worse yesterday. Patient was seen here recently for abdominal pain. CBC at that time was slightly elevated but was likely due to the vomiting. Patient was given analgesics at that time it felt better. Patient states she is unable to keep any of her pain medications down. Patient states her pain is over the right lower abdomen. Patient states she had a CT recently which did not show any evidence of appendicitis. Patient admits to some subjective chills. Patient denies any diarrhea, melena, or hematochezia. Physical Examination: Vital signs are stable except for mild tachypnea of 24. Patient is afebrile. Oral mucosa is pink and moist. Neck is supple. Trachea is midline. Heart was regular rate and rhythm. Lungs are clear and equal bilateral. Abdomen is soft. Bowel sounds are normal. There is right lower quadrant tenderness. There is no rebound or guarding noted. Cranial nerves II through XII are intact. There are no focal motor or sensory deficits noted. The remaining physical exam is within normal limits. Test Results: CBC showed a mild leukocytosis of 14 1. This was slightly improved from obvious result of 14.9. Comprehensive metabolic profile was normal. Urinalysis was normal. Serum hCG was negative. Emergency Department Course and Treatment: Patient was given IV fluids, Zofran, Dilaudid, and Benadryl. Patient had improvement of her pain. Case was discussed with Dr. Brooks. She will be in to evaluate the patient. She will take the patient to the OR today. He was given a repeat dose of Dilaudid and Benadryl. Disposition: Admit to OR Impression: 1. Intractable abdominal pain This note was generated with [employer] dictation software. It may contain incorrect words, spelling, and punctuation that were not noted in review of the chart prior to signing ED Disposition - Plan for ED Patient: Disposition: Acute Care Hospital [facility] Diagnosis: Intractable lower abdominal pain Referrals: Anastacia Brooks MD [Primary Care Provider] -
[2018-08-07 09:00] LABS: Absolute Lymphocyte Count 2.09 X10^3/ul (0.83-4.51); Absolute Neutrophil Count 10.4 X10^3/uL (2.0-7.7); Basophil# 0.04 X10^3/uL; Basophil% 0.3 % (0-1); Eosinophil# 0.24 X10^3/uL; Eosinophils% 1.7 % (0-5); Hematocrit 40.6 % (37-47); Hemoglobin 13.3 g/dl (12.0-15.0); Lymphocyte # 2.09 X10^3/ul (4.0); Lymphocyte % 14.9 % (19-41); Mean Corp Hgb Conc 32.8 g/gl (32-36); Mean Corpuscular Hgb 29.1 pg (27.0-32.0); Mean Corpuscular Volume 88.8 fL (81-99); Mean Platelet Vol. 10.2 fl (6.2-12.0); Monocyte# 1.26 X10^3/uL; Neutrophil # 10.42 X10^3/uL (2.7-7.7); Platelet Count 289 K/mm3 (150-450); RBC Distribution Width CV 14.2 % (11.6-14.6); Red Blood Count 4.57 M/mm3 (4.2-5.4); White Blood Count 14.1 K/mm3 (4.4-11.0)
--- NOTE | 2018-08-07 09:00 | ED.DCSUM_ITS ---
- ER Visit Summary Date of Service: 08/07/18 Chief Complaint: Abdominal pain History of Present Illness: The patient is a 42 F who presents with abdominal pain that became worse yesterday. Patient was seen here recently for abdominal pain. CBC at that time was slightly elevated but was likely due to the v omiting. Patient was given analgesics at that time it felt better. Patient states she is unable to keep any of her pain medications down. Patient states her pain is over the right lower abdomen. Patient states she had a CT recently which did not show any evidence of appendicitis. Patient admits to some subjective chills. Patient denies any diarrhea, melena, or hematochezia. Physical Examination: Vital signs are stable except for mild tachypnea of 24. Patient is afebrile. Oral mucosa is pink and moist. Neck is supple. Trachea is midline. Heart was regular rate and rhythm. Lungs are clear and equal bilateral. Abdomen is soft. Bowel sounds are normal. There is right lower quadrant tenderness. There is no rebound or guarding noted. Cranial nerves II through XII are intact. There are no focal motor or sensory deficits noted. The remaining physical exam is within normal limits. Test Results: CBC showed a mild leukocytosis of 14 1. This was slightly improved from obvious result of 14.9. Comprehensive metabolic profile was normal. Urinalysis was normal. Serum hCG was negative. Emergency Department Course and Treatment: Patient was given IV fluids, Zofran, Dilaudid, and Benadryl. Patient had improvement of her pain. Case was discussed with Dr. Brooks. She will be in to evaluate the patient. She will take the patient to the OR today. He was given a repeat dose of Dilaudid and Benadryl. Disposition: Admit to OR Impression: 1. Intractable abdominal pain This note was generated with [employer] dictation software. It may contain incorrect words, spelling, and punctuation that were not noted in review of the chart prior to signing ED Disposition - Plan for ED Patient: Disposition: Acute Care Hospital [facility] Diagnosis: Intractable lower abdominal pain Referrals: Anastacia Brooks MD [Primary Care Provider] -
[2018-08-07 09:01] LABS: POSITIVE COUNT NO; POSITIVE DIFFERENTIAL NO; POSITIVE MORPHOLOGY NO
[2018-08-07 09:15] LABS: ALB/GLOB Ratio 1.3 RATIO (0.9-2.4); AST(SGOT) 16 U/L (15-37); Alanine Aminotransfer ALT/SGPT 19 U/L (13-56); Albumin, Serum 3.9 g/dL (3.2-5.0); Alkaline Phosphatase 63 U/L (45-117); Anion Gap 9 (5-15); BUN 11 mg/dL (7-18); BUN/Creat Ratio 13.3 RATIO (10-20); Calcium,Total 8.8 mg/dL (8.5-10.1); Chloride 110 mmol/L (98-107); Creatinine, Serum 0.83 mg/dL (0.55-1.02); EST Glomerular Filtration Rate 80 mL/min (>60); Est Glom Filt Rate - Afr Amer 97 mL/min (>60); Globulin 3.1 g/dL (2.2-4.2); Glucose 98 mg/dL (74-106); Potassium 4.2 mmol/L (3.5-5.1); Sodium Level 141 mmol/L (136-145)
[2018-08-07 09:21] LABS: Mucous, Urine 0 SEEN /hpf (<or=2+); Red Blood Cells-Urine 0 SEEN /hpf (0-5)
[2018-08-07 09:21] LABS: Pregnancy, Serum, hCG Quali. NEGATIVE Negative (0-9 Nonpreg)
[2018-08-07 09:23] LABS: Color, Urine Yellow (Yellow); Glucose, Dipstick Normal (Normal); Ketone-Dipstick 5 mg/dl (Negative); Leukocyte Esterase-Dipstick 25 /ul (Negative); Nitrite-Dipstick Negative (Negative); Occult Blood-Urine Negative /ul (Negative); Protein-Dipstick Negative (Negative); Specific Gravity, Urine 1.015 (1.002-1.030); Urine Bilirubin Dipstick Negative (Negative); Urine Clarity Sl. Cloudy (Clear); Urine Urobilinogen Normal (Normal)
[2018-08-07 09:30] LABS: Bacteria 1+ /hpf (None Seen); Squamous Epithelial Cells - UA 0-5 SEEN /hpf (5-10); White Blood Cells 0-5 SEEN /hpf (0-5)
[2018-08-07] MEDS: Magnesium Sulfate 4gm/100mL 4 GM/100 ML IV.SOLN. IV (12:45)
[2018-08-07] MEDS: Celecoxib 200 MG Capsule 400 MG PO (12:45)
[2018-08-07] MEDS: Ciprofloxacin 400 MG/200 ML BAG 200 MG IV (12:45)
[2018-08-07] MEDS: Phenazopyridine 95 MG Tablet 190 MG PO (12:45)
[2018-08-07] MEDS: Acetaminophen 500 MG Tablet 1000 MG PO ×3 (12:45→23:00)
[2018-08-07] MEDS: Gabapentin 600 MG Tablet PO (12:45)
[2018-08-07] MEDS: Scopolamine 1mg/72hr Patch 1 PATCH TRANSDERM. (12:45)
[2018-08-07] MEDS: Enoxaparin 40 MG/0.4 ML Syringe SC (12:45)
--- NOTE | 2018-08-07 13:30 | HYST_PTH ---
PATIENT: MATTEO GLEASON LOC: [facility] – [place] U#:[id number] AGE/SX: 42/F ROOM: RE08/07/[address]: Dr. Anastacia Brooks MD : 1975 BED: DIS: 08/08/2018 SPEC #: [id number] RECD: 08/07/18 16:45 STATUS: SHIELA CARTER #: [id number] KASSY: 08/07/18 13:[address]: Anastacia Brooks DEPT: SURGICAL PATHOLOGY RECD BY: Mack Roberto Tissues: A - Uterus, NOS B - Vulva, NOS Procedures: Surgery Specimen Level IV Surgery Specimen Level V HEADER OPERATION: Hysterectomy, lap-assisted vaginal, BSO, vulvar biopsy PRE-OP DIAGNOSIS: Acute on chronic pelvic pain, vulvar lesion TISSUE SUBMITTED: A - Uterus, cervix, bilateral ovaries and fallopian tubes, B - Vulvar biopsy MICROSCOPIC DIAGNOSIS A. Uterus, hysterectomy: Cervix - squamous metaplasia, mild chronic inflammation and nabothian cysts. Endometrium - weakly proliferative inactive endometrium. Myometrium - adenomyosis and microscopic leiomyoma. Right fallopian tube - no pathologic change. Right ovary - corpus luteal cysts and corpora albicantia. Left fallopian tube - hemosalpinx Left ovary - hemorrhagic corpus luteal cyst and corpora albicantia. B. Vulvar lesion, biopsy: Benign fibroepithelial polyp, mildly inflamed. AM:parker 08/11/18 COMMENT B. Results from immunohistochemistry ([id number]) for surrogate HPV marker (p16) will be reported separately. MICROSCOPIC DESCRIPTION Slides are reviewed. GROSS DESCRIPTION A - Received in fixative is one container labeled with the patient's name and designated uterus, cervix, bilateral ovaries and fallopian tubes. The specimen consists of a hysterectomy specimen consisting of uterus with cervix and attached bilateral fallopian tubes and ovaries. The uterus with cervix weighs 108 gm and measures 10 x 7 x 4 cm. The serosal surface is linares, glistening. The ectocervical mucosa is unremarkable. The external os is oval in contour. The endocervical canal measures 3.5 cm in length and the endocervical mucosa is linares, glistening and unremarkable. The endometrial cavity is narrow, focally appears fibrotic and measures 3.5 cm in length and up to 0.5 cm in width. Adjacent to area of fibrosis in the proximal portion of the endometrial cavity in the uterine wall is a cystic nodule filled with hemorrhagic fluid measuring 2.5 cm in greatest dimension. Sections of the uterine wall do not reveal any mass lesion. The right fallopian tube measures 5 cm in length and 0.5 cm in diameter. The fimbrial end is identified. No tubo-ovarian adhesions are noted. The soft to cystic right ovary measures 4.5 x 2.5 x 2 cm. Sections reveal a hemorrhagic cyst measuring 2 cm in greatest dimension. The left fallopian tube is similar appearance to right and measures 6 cm in length and 0.5 cm in diameter. The left fallopian tube appears to be focally interrupted close to the proximal margin. The proximal margin of the fallopian tube is filled with bloody fluid. The left ovary measures 2.5 x 2.5 x 1.2 cm. Sections reveal a cyst filled with clear fluid and hemorrhagic cyst measuring 1 cm in greatest dimension. Multimedia Designer sections are submitted in 12 cassettes as follows: 1 - anterior cervix, 2 - posterior cervix, 3-5 - anterior uterine wall, 6-8 - posterior uterine wall, 9 - right fallopian tube and ovary, 10 - more section of right ovary, 11 - left fallopian tube, 12 - left ovary. B - Received in fixative is one container labeled with the patient's name and designated vulvar biopsy. The specimen consists of a piece of linares-brown soft tissue measuring 0.2 x 0.2 x 0.1 cm. The specimen is totally submitted in one cassette. / SJ:rg 08/08/18 TC:5 CPT: 27071, 65885
--- NOTE | 2018-08-07 13:47 | PCM.OPRPT ---
Problem List (1) Intractable lower abdominal pain Status: Acute (2) Vulvar lesion Status: Acute Comment: recommend biopsy (3) Stress incontinence Status: Chronic Comment: urogyn referral (4) Tobacco use Status: Acute Comment: encouraged cessation- in process of cutting back and then quitting (5) Climacteric Status: Acute Comment: fsh estradiol checked, recommend HRT (6) Low back strain Status: Acute Qualifiers: (7) Strain of foot, left Status: Acute Qualifiers: (8) Fluid level behind tympanic membrane of right ear Status: Acute (9) Bronchitis Status: Acute (10) Pneumonia Status: Acute (11) Reactive airway disease Status: Acute Report of Operation Date of Procedure: 08/07/18 Pre-Operative Diagnosis: pelvic pain acute on chronic, chornic ovarian cysts, post ablation, vulvar lesion Surgery/Procedure Performed:: lavh bso cysto vulvar biopsy Description of Surgical Findings:: Right scar tissue between the anterior uterine wall to abdominal wall. Cystic ovaries bilaterally punch box tender: Joanne Kunz Type of Anesthesia:: General Special Medications: none Specimen's removed: uterus tubes ovaries vulvar lesion Drains: jean Estimated Blood Loss (mL): 100 Fluids Replaced: crystalloid Description of Procedure: Patient received preoperative antibiotics and SCDs were on preoperatively. Patient was taken back to the operating room and placed in the dorsal lithotomy position. General anesthesia was induced and patient was prepped and draped in normal sterile fashion. Uterine manipulator was placed inside the uterus and Jean catheter placed in the bladder. The umbilicus was grasped with towel clamps and an intraumbilical incision was made after injecting with quarter percent Marcaine and a Veress needle entered into the abdomen confirmed to be intra-abdominal with a low opening pressure. Abdomen was insufflated with CO2 gas and the Veress needle removed and the 5 mm trocar was placed under direct visualization without complication. Right and left lower quadrants were transilluminated and injected with quarter percent Marcaine and 5 mm ports placed under direct visualization. Pelvis was well visualized see operative findings for additional information. Bilateral fallopian tubes were identified and transected with the LigaSure device across the mesosalpinx to the level of the utero-ovarian ligament which was also transected with the LigaSure device. The broad ligament was opened up by transecting the round ligament bilaterally and skeletonizing the uterine vessels bilaterally and creating a bladder flap using the LigaSure device. The uterine arteries were transected bilaterally with good visualization of the bladder and the ureters were seen to be inferior lateral to the operative area. Attention was then paid to the vaginal portion of the procedure and the cervix was grasped with Aries clamps and circumferentially injected with dilute vasopressin. A circumferential incision was made and the vaginal mucosa was mobilized off posteriorly and the cul-de-sac entered into sharply and a longneck speculum placed. The anterior cul-de-sac was then identified and entered into sharply. The uterosacral ligaments were clamped cut and suture ligated with 0 Monocryl bilaterally followed by the cardinal ligaments which were clamped cut and suture ligated bilaterally with 0 Monocryl. The uterus serially descended and was removed without difficulty with minimal morcellation. Pelvic sidewall pedicles were checked and noted to have excellent hemostasis. The vaginal mucosa was reapproximated incorporating the posterior peritoneum. This was reapproximated using 0 Vicryl [id number] sutures. Excellent hemostasis was noted. The cystoscopy was then performed and bilateral ureteral strong spray was noted and the bladder was noted to have no abnormality or lesions seen. Jean catheter was replaced and then attention paid to the abdominal portion of the procedure again. The pelvis and cul-de-sac was well visualized and no significant active bleeding noted. Pressure was taken down and the areas visualized and noted of excellent hemostasis. All ports were removed under direct visualization without complication and the abdomen was desufflated of air. The instruments removed from the abdomen and the vagina vaginal sweep was negative. Port sites on the abdomen were closed with 4-0 Monocryl interrupted sutures and Steri's and windows were applied. She was awoken and taken recovery in stable condition. Grafts/Implants Used: none - Complications none - Admit VTE Documentation VTE Present on Admission: No
--- NOTE | 2018-08-07 13:52 | DCINST_ITS ---
Discharge Diet: No Restrictions Discharge Activity: Return to Normal Activity, May Not Drive, May Shower May resume sexual activity in: 6-8 weeks Call your doctor if your incision/area has: Continuous Slow Oozing, Sudden Increased Bleeding, Increased Pain/ Swelling, Increased Redness, Foul Smelling Discharge Call your doctor if you observe: Fever of 101 or Higher, Inability to urinate, Inability to have a bowel movement, Using more than one pad per hour Allergies/Adverse Reactions: Allergies Opioids - Morphine Analogues Allergy (Verified 08/07/18 08:38) Itching Penicillins Allergy (Verified 08/07/18 08:38) Anaphylaxis MOST PAIN MEDS Adverse Reaction (Uncoded 08/07/18 08:38) Itching Medications to take at Discharge norethindrone (contraceptive) 0.35 mg tablet 0.35 mg PO QDAY #84 tab 07/21/18 oxycodone-acetaminophen 5 mg-325 mg tablet 1 tab PO Q6H PRN #28 tab 07/21/18 Ibuprofen 800 mg PO Q6H PRN PRN 08/07/18 Ibuprofen [Motrin] 600 mg PO Q6H PRN PRN #30 tablet 08/07/18 Oxycodone HCl/Acetaminophen [Percocet 5-325] 1 - 2 tablet PO Q4H PRN PRN 7 Days #15 tablet 08/07/18 The following prescriptions were given: Oxycodone HCl/Acetaminophen [Percocet 5-325] 1 - 2 tablet PO Q4H PRN PRN 7 Days #15 tablet PRN Reason: Pain Ibuprofen [Motrin] 600 mg PO Q6H PRN PRN #30 tablet PRN Reason: Pain Primary Care Physician: Anastacia Brooks MD [Primary Care Provider] - Test Results: Test results from this visit will be discussed in further detail at your follow- up appointment, if applicable. Please Follow Up With: Anastacia Brooks MD - [phone]
[2018-08-07] MEDS: Bupivacaine 0.25% 30 ML Vial (14:05)
[2018-08-07] MEDS: Vasopressin 20 UNITS/ML Vial (14:31)
[2018-08-07] MEDS: Ketorolac 30 MG/ML Syringe IV ×2 (17:54→23:00)
[2018-08-07] MEDS: Docusate Sodium 100 MG Capsule PO (22:23)
[2018-08-08] MEDS: Lactated Ringers 1,000 ML 70 ML IV (02:31)
[2018-08-08 02:32] VITALS: BP 122/46; PULSE 78; RESP 14; TEMP 37; O2SAT 97
[2018-08-08] MEDS: Ketorolac 30 MG/ML Syringe IV (05:57)
[2018-08-08] MEDS: Acetaminophen 500 MG Tablet 1000 MG PO (05:57)
[2018-08-08 06:41] LABS: Hematocrit 34.4 % (37-47); Hemoglobin 11.4 g/dl (12.0-15.0); Mean Corp Hgb Conc 33.1 g/gl (32-36); Mean Corpuscular Hgb 29.9 pg (27.0-32.0); Mean Corpuscular Volume 90.3 fL (81-99); Mean Platelet Vol. 10.6 fl (6.2-12.0); Platelet Count 246 K/mm3 (150-450); RBC Distribution Width CV 13.9 % (11.6-14.6); RBC Distribution Width SD 44.9 fl (35.1-43.9); Red Blood Count 3.81 M/mm3 (4.2-5.4); White Blood Count 15.7 K/mm3 (4.4-11.0)
[2018-08-08 06:44] LABS: Scan Indicated on CBC? Y/N NO
[2018-08-08 06:54] VITALS: O2SAT 93
[2018-08-08] MEDS: Docusate Sodium 100 MG Capsule PO (08:40)
[2018-08-08] MEDS: Enoxaparin 40 MG/0.4 ML Syringe SC (08:40)
[2018-08-08 08:45] VITALS: BP 115/67; PULSE 61; RESP 18; TEMP 37; O2SAT 94
--- NOTE | 2018-08-08 08:50 | PCM.PN.OB ---
Patient Problems: Active and Suspected Problems (Last Reviewed 07/21/18 @ 10:46 by Kera Eddy) Intractable lower abdominal pain (Acute) Subjective: doing well no complaints - Physical Exam General: Alert, Oriented x3 Vital Signs Temp Pulse Resp BP Pulse Ox 98.6 F 61 18 115/67 94 08/08/18 08:45 08/08/18 08:45 08/08/18 08:45 08/08/18 08:45 08/08/18 08:45 Oxygen Flow Rate (L/min) 6 Oxygen Delivery Method Room Air Weight: 161 lb Body Mass Index (BMI) 28.5 Intake and Output for Last 24 Hours 08/06/18 08/07/18 08/08/18 23:59 23:59 23:59 Intake Total 1999 1804 / 1804 Output Total 125 / 125 250 / 250 Balance 1875 / 1875 1554 / 1554 Laboratory Tests Past 24 Hrs 08/07/18 08/07/18 08/07/18 08:45 08:45 08:45 WBC 14.1 H RBC 4.57 Hgb 13.3 Hct 40.6 MCV 88.8 MCH 29.1 MCHC 32.8 RDW 14.2 RDW Differential 46.0 H Plt Count 289 MPV 10.2 Immature Gran % (Auto) 0.100 Neut % (Auto) 74.0 H Lymph % (Auto) 14.9 L [place] % (Auto) 9.0 Eos % (Auto) 1.7 Baso % (Auto) 0.3 Absolute Neuts (auto) 10.4 H Absolute Lymphs (auto) 2.09 Total Counted Not Reportable Sodium 141 Potassium 4.2 Chloride 110 H Carbon Dioxide 22.0 Anion Gap 9 BUN 11 Creatinine 0.83 Estim Creat Clear Calc 72.30 Est GFR (MDRD) Af Amer 97 Est GFR (MDRD) Non-Af 80 BUN/Creatinine Ratio 13.3 Glucose 98 Calcium 8.8 Total Bilirubin 0.40 AST 16 ALT 19 Alkaline Phosphatase 63 Total Protein 7.0 Albumin 3.9 Globulin 3.1 Albumin/Globulin Ratio 1.3 Serum , Qual NEGATIVE Urine Color Urine Clarity Urine pH Ur Specific [place] Urine Protein Urine Glucose (UA) Urine Ketones Urine Occult Blood Urine Nitrite Urine Bilirubin Urine Urobilinogen Ur Leukocyte Esterase Urine RBC Urine WBC Ur Squamous Epith Cells Urine Bacteria Urine Mucus Blood Type Antibody Screen 08/07/18 08/07/18 08/08/18 09:17 12:03 05:48 WBC 15.7 H RBC 3.81 L Hgb 11.4 L Hct 34.4 L MCV 90.3 MCH 29.9 MCHC 33.1 RDW 13.9 RDW Differential 44.9 H Plt Count 246 MPV 10.6 Immature Gran % (Auto) Neut % (Auto) Lymph % (Auto) [place] % (Auto) Eos % (Auto) Baso % (Auto) Absolute Neuts (auto) Absolute Lymphs (auto) Total Counted Sodium Potassium Chloride Carbon Dioxide Anion Gap BUN Creatinine Estim Creat Clear Calc Est GFR (MDRD) Af Amer Est GFR (MDRD) Non-Af BUN/Creatinine Ratio Glucose Calcium Total Bilirubin AST ALT Alkaline Phosphatase Total Protein Albumin Globulin Albumin/Globulin Ratio Serum , Qual Urine Color Yellow Urine Clarity Sl. Cloudy Urine pH 8.0 Ur Specific [place] 1.015 Urine Protein Negative Urine Glucose (UA) Normal Urine Ketones 5 H Urine Occult Blood Negative Urine Nitrite Negative Urine Bilirubin Negative Urine Urobilinogen Normal Ur Leukocyte Esterase 25 H Urine RBC 0 SEEN Urine WBC 0-5 SEEN Ur Squamous Epith Cells 0-5 SEEN Urine Bacteria 1+ Urine Mucus 0 SEEN Blood Type O POSITIVE Antibody Screen NEGATIVE Medical Necessity - Tobacco Use Smoking Status: Current every day smoker Assessment/Plan All Active Problems (Last Reviewed 07/21/18 @ 10:46 by Kera Eddy) Intractable lower abdominal pain (Acute) Vulvar lesion (Acute) Tobacco use (Acute) Climacteric (Acute) Low back strain (Acute) Strain of foot, left (Acute) Fluid level behind tympanic membrane of right ear (Acute) Bronchitis (Acute) Pneumonia (Acute) Reactive airway disease (Acute) s/p lavh bso doingw ell routine care ri home
== END 2018-08-08 08:49 | disposition home or self-care (01) ==
LOC: ED 10:37 → SDC 10:39 → AC 10:40 → MS3 15:12
PROVIDERS: Emergency Provider Emergency Medicine; Family Provider Obstetrics & Gynecology; PCP Obstetrics & Gynecology; Visit Provider Obstetrics & Gynecology
PROC: 0UT9FZZ Resection of Uterus, Via Natural or Artificial Opening With Percutaneous Endoscopic Assistance (ICD-10-PCS; CPT 56605; principal; 2018-08-07 13:05)
DX: D25.9 Leiomyoma of uterus, unspecified (principal); N88.8 Other specified noninflammatory disorders of cervix uteri; N87.0 Mild cervical dysplasia; N80.0 Endometriosis of uterus; N83.12 Corpus luteum cyst of left ovary; N83.11 Corpus luteum cyst of right ovary; N84.3 Polyp of vulva; N39.3 Stress incontinence (female) (male); F17.200 Nicotine dependence, unspecified, uncomplicated; N95.1 Menopausal and female climacteric states
CPT/HCPCS: 56605; 58552; 36415; 80053; 81001; 84703; 85025; 85027; 86850; 86900; 88305; 88307; 88341; 88342; 99284; 99406; J7030; J7120; A4216; J0744; J2405

== ENCOUNTER → 2019-04-27 15:29 | Outpatient (CLI) | payer BC, SELFPAY ==
[2019-01-12 11:37] VITALS: BMI 27.8
== END ==
PROVIDERS: Family Provider Obstetrics & Gynecology; PCP Obstetrics & Gynecology; Referring Provider Otolaryngology Otolaryngology/Facial Plastic Surgery; Visit Provider Otolaryngology Otolaryngology/Facial Plastic Surgery
DX: J02.9 Acute pharyngitis, unspecified (principal)
CPT/HCPCS: 87070

== ENCOUNTER → 2019-07-08 09:03 | Outpatient (CLI) | payer BC, SELFPAY ==
[2019-07-08 08:33] VITALS: BMI 30.1
[2019-07-08 12:36] LABS: Absolute Lymphocyte Count 2.32 X10^3/uL (0.83-4.51); Basophil# 0.07 X10^3/uL; Basophil% 0.8 % (0-1); Eosinophil# 0.25 X10^3/uL; Eosinophils% 2.9 % (0-5); Hematocrit 42.2 % (37-47); Hemoglobin 13.7 g/dL (12.0-15.0); Lymphocyte # 2.32 X10^3/ul (4.0); Lymphocyte % 27.3 % (19-41); Mean Corp Hgb Conc 32.5 g/dL (32-36); Mean Corpuscular Hgb 28.6 pg (27.0-32.0); Mean Corpuscular Volume 88.1 fL (81-99); Mean Platelet Vol. 10.4 fl (6.2-12.0); Monocyte# 0.82 X10^3/uL; Monocyte% 9.6 % (0-10); NRBC Flagged by Analyzer 0 % (0-5); Neutrophil # 5.01 X10^3/uL (2.7-7.7); Platelet Count 308 K/mm3 (150-450); RBC Distribution Width SD 45.2 fl (35.1-43.9); Red Blood Count 4.79 M/mm3 (4.2-5.4); White Blood Count 8.5 K/mm3 (4.4-11.0)
[2019-07-08 12:52] LABS: ALB/GLOB Ratio 1.1 RATIO (0.9-2.4); AST(SGOT) 21 U/L (15-37); Alanine Aminotransfer ALT/SGPT 38 U/L (13-56); Albumin, Serum 3.8 g/dL (3.2-5.0); Alkaline Phosphatase 83 U/L (45-117); Anion Gap 4 (5-15); BUN 15 mg/dL (7-18); BUN/Creat Ratio 18.2 RATIO (10-20); Calcium,Total 9.4 mg/dL (8.5-10.1); Chloride 108 mmol/L (98-107); Cholesterol 230 mg/dL (200); Creatinine, Serum 0.83 mg/dL (0.55-1.02); EST Glomerular Filtration Rate 80 mL/min (>60); Est Glom Filt Rate - Afr Amer 96 mL/min (>60); Globulin 3.5 g/dL (2.2-4.2); Glucose 90 mg/dL (74-106); High Density Lipoprotein 59 mg/dL; Potassium 4.2 mmol/L (3.5-5.1); Protein, Total 7.3 g/dL (6.4-8.2); Sodium Level 140 mmol/L (136-145); T4 Free Direct 0.98 ng/dL (0.76-1.46); Thyroid Stim Hormone (TSH) 2.24 uIU/mL (0.358-3.74); Triglycerides 102 mg/dL; Very Low Density Lipoprotein 20 mg/dL (5-40)
== END ==
LOC: BIMLAB 09:05
PROVIDERS: PCP Internal Medicine; Referring Provider Internal Medicine; Visit Provider Internal Medicine
DX: F41.1 Generalized anxiety disorder (principal); E78.5 Hyperlipidemia, unspecified
CPT/HCPCS: 36415; 80053; 80061; 84439; 84443; 85025

== ENCOUNTER → 2019-10-08 12:22 | Outpatient (CLI) | payer BC, SELFPAY ==
[2019-10-08 12:08] VITALS: BMI 27.8
--- NOTE | 2019-10-08 12:24 | RAD_ITS ---
STUDY: X-RAY - RIGHT FOOT CLINICAL: Female, 44 years old. Right foot pain mid dorsal goes into 2nd/3rd toes x one week TECHNIQUE: 3 view(s) of the foot. COMPARISON: None. FINDINGS: Normal talus, calcaneus, and tarsal bones. Normal visualized subtalar, talonavicular, calcaneocuboid, tarsal and tarsometatarsal articulations. Normal metatarsi. There is degenerative arthrosis of the metatarsophalangeal joint of the hallux with a hallux valgus deformity. Normal tibial and fibular sesamoid bones. Normal interphalangeal joint of the great toe. Normal phalanges of the great toe. Normal second through fifth metatarsophalangeal joints. Normal interphalangeal joints and phalanges of the lesser toes. There is non-specific soft tissue swelling of the foot. RAD/Foot min 3 Views IMPRESSION: Hallux valgus deformity with degenerative changes at the first metatarsophalangeal joint. Electronically Signed: Harjit Diamond, at 12:45 EDT , Service support ,
== END ==
LOC: MTRAD 12:23
PROVIDERS: PCP Internal Medicine; Referring Provider Physician Assistant; Visit Provider Physician Assistant
DX: M79.671 Pain in right foot (principal)
CPT/HCPCS: 73630

== ENCOUNTER 2019-12-07 15:12 | Emergency (ER) | payer BC, SELFPAY ==
[2019-10-08 12:08] VITALS: BMI 27.8
[2019-12-07 15:14] VITALS: BP 115/84; PULSE 92; RESP 16; TEMP 36.6; O2SAT 100; BMI 27.4
--- NOTE | 2019-12-07 15:45 | RAD_ITS ---
STUDY: X-RAY - RIGHT KNEE REASON FOR EXAM: Female, 44 years old. Right knee pain after gardening. heard a pop TECHNIQUE: 2 view(s) of the knee. COMPARISON: 06/23/2012. FINDINGS: Normal visualized distal femur. Normal visualized proximal tibia and fibula. Normal proximal tibiofibular articulation. There is no demonstrated fracture. Normal medial femorotibial compartment. Normal lateral femorotibial compartment. Normal patellofemoral articulation. There is no demonstrated joint effusion. The soft tissue structures are unremarkable. RAD/Knee 1 or 2 Views IMPRESSION: Negative two-view x-ray examination of the knee. Electronically Signed: Scott Babin MD at 16:51 EDT , Service support ,
--- NOTE | 2019-12-07 16:35 | ED.DCSUM_ITS ---
History of Present Illness Chief Complaint: Lower Extremity Injury Informant: Patient Occurred: Today Onset: Today Context: Sudden Onset Timing: Continuous Quality of Pain: Dull, Burning Narrative: Patient is a 44-year-old male that denies any significant past medical history presenting with pain of her right knee. Patient states she was kneeling in her garden when she went to stand up she felt a very loud pop and immediately had pain in her knee. She states she has diffuse pain but it is worse over the medial aspect of the knee and radiates underneath her kneecap. She had a hard time walking since the pain and came immediately to the emergency room. She not take anything for pain prior to arrival. Patient states the pain is now becoming more throbbing in nature since she has been here icing her knee. However if she tries to perform a straight leg raise she once again gets very sharp pain in her knee. Patient denies any other complaints at this time. She denies any associated numbness or tingling. She denies any significant swelling of her knee or calf. Past Medical History - Allergies and Home Meds Allergies/Adverse Reactions: Allergies Opioids - Morphine Analogues Allergy (Verified 10/08/19 12:08) Itching Penicillins Allergy (Verified 10/08/19 12:08) Anaphylaxis MOST PAIN MEDS Adverse Reaction (Uncoded 10/08/19 12:08) Itching Primary Care Physician: Yordan Anton MD [Primary Care Provider] - Prasanna Sanchez DO [STAFF PHYSICIAN] - Past Medical History: None Surgical History: noncontributory Smoking Status: Current every day smoker Review of Systems General: Denies: Chills, Fever, Sweats Eyes: Denies: Visual changes - bilaterally, Diplopia ENT: Denies: Rhinorrhea, Sore throat Cardiovascular: Denies: Chest pain, Palpitations Respiratory: Denies: Dyspnea, Cough, Dyspnea on exertion Gastrointestinal: Denies: Abdominal pain, Nausea, Vomiting, Diarrhea, Melena, Hematochezia Genitourinary: Denies: Dysuria, Hematuria, Frequency Musculoskeletal: Reports: Extremity Pain - Right knee. Denies: Back pain, Swelling Skin: Denies: Rash, Wounds Neurological: Denies: Headache, Weakness, Numbness Physical Exam Vital Signs/Narrative: Vital Signs Temp Pulse Resp BP Pulse Ox 12/07/19 15:14 97.8 F 92 16 115/84 H 100 Inital Vital Signs reviewed: Yes - Extremity Exam Right Hip: Negative for: Deformity, Edema, Hematoma, Limited ROM Right Femur: Negative for: Deformity, Edema, Hematoma, Limited ROM Right Knee: Limited ROM, - - Patella is in his normal position. Quadricep tendon mechanism appears to be intact. No significant joint effusion present. Patient is limited range of motion secondary to pain. Is difficult to perform stress test on the knee secondary to pain and acuity of condition.. Negative for: Deformity, Edema Right Tib fib: - - Right calf is soft, normal compartments. Negative for: Deformity, Edema, Limited ROM Right Ankle: Negative for: Deformity, Edema, Limited ROM General: Well nourished, Well developed Head: Normocephalic, Atraumatic Eyes: Perrl, EOMI ENT: No Trauma, Moist Mucous Membranes Neck: Nontender, Full ROM Cardiovascular: Regular rate, Regular rhythm, No murmurs Respiratory: No distress, CTA bilaterally, Chest nontender Abdomen: Soft, Nontender, Nondistended, Normal bowel sounds Back: Nontender Skin: Normal color, No rash Neurological: Alert, Oriented x3, Cranial nerves II-XII grossly intact, Normal Strength, Normal Sensation Psychological: Normal affect Diagnostic/Tx/Re-eval - Medical Decision Making Patient is evaluated for sudden onset of right knee pain. Her presentation is concerning for possible meniscal injury. Her quadricep and patellar tendons appear to be intact. She does not have any obvious signs of trauma or any obvious joint effusion. Patient states she is allergic to most pain meds and can only take anti-inflammatories. She is given Motrin 600 mg in the ER. She will follow-up with orthopedics, Dr. Sanchez, her family already has relationship with. Juancarlos wrap is applied. Is counseled on rice therapy. Patient is counseled on signs and symptoms requiring return to the emergency room. Patient verbalizes agreement and understand this plan. Patient discharged home in stable and improved condition. ED Disposition - Plan for ED Patient: Disposition: Home or Assisted Living Diagnosis: Right knee injury Instructions: ED Meniscal Injury Knee Poss, ED Knee Pain UKO Prescriptions: Ibuprofen [Motrin] 600 mg PO Q6H PRN PRN #20 tab PRN Reason: Pain Score 1-10/10 Transmission Status: Received by [id number] Referrals: Yordan Anton MD [Primary Care Provider] - Prasanna Sanchez DO [STAFF PHYSICIAN] -
[2019-12-07] MEDS: Ibuprofen 600 MG Tablet PO (16:41)
[2019-12-07 16:53] VITALS: BP 124/77; PULSE 68; RESP 15; O2SAT 98
== END 2019-12-07 16:53 | disposition home or self-care (01) ==
PROVIDERS: Emergency Provider Emergency Medicine; PCP Internal Medicine
DX: S89.91XA Unspecified injury of right lower leg, initial encounter (principal); X58.XXXA Exposure to other specified factors, initial encounter; Y93.9 Activity, unspecified; Y92.9 Unspecified place or not applicable; F17.200 Nicotine dependence, unspecified, uncomplicated
CPT/HCPCS: 73560; 99283

== ENCOUNTER → 2019-12-16 09:24 | Outpatient (CLI) | payer BC, SELFPAY ==
[2019-12-09 10:41] VITALS: BMI 27.4
--- NOTE | 2019-12-16 09:25 | MRI_ITS ---
STUDY: MRI RIGHT KNEE REASON FOR EXAM: Medial and patellar pain after the knee popped 1 week ago. TECHNIQUE: Standardized fat and water weighted pulse sequences were obtained in all 3 orthogonal planes. COMPARISON: Radiographs 12/07/2019. FINDINGS: Normal medial meniscus. Normal hyaline cartilage of the medial femorotibial compartment. Normal medial femoral condyle and tibial plateau. There is a mild sprain of the medial collateral ligament (T2 axial images 14-16). Normal distal semimembranosus, gracilis and semitendinosus tendons. There is a horizontal tear of the free margin of the anterior horn/anterior body of the lateral meniscus (proton-density coronal image 20; proton density sagittal images 9, 10). Normal hyaline cartilage of the lateral femorotibial compartment. Normal lateral femoral condyle and tibial plateau. Normal proximal tibiofibular articulation. Normal lateral collateral (fibular) ligament. Normal popliteus tendon. Normal biceps femoris tendon. Normal anterior cruciate ligament (ACL). Normal posterior cruciate ligament (PCL). Normal congruent patellofemoral articulation. Normal hyaline cartilage of the patellofemoral compartment. Normal medial and lateral patellar retinaculum. Normal quadriceps tendon. Normal patellar tendon. There is edema in Hoffa''s fat pad inferior to the lateral aspect of the patellofemoral articulation (T2 coronal images 28, 29). There is no joint effusion. There is a small popliteal cyst (T2 sagittal images 17, 18). The otherwise visualized osseous structures are unremarkable. MRI/Lower Ext Joint Only (Routine) IMPRESSION: Mild sprain of the medial collateral ligament. Lateral meniscal tear. Edema in Hoffa''s fat pad inferior to the lateral aspect patellofemoral articulation, suggestive of patellofemoral friction syndrome. Small popliteal cyst. Electronically Signed: Alexei Johnson MD at 11:21 EDT Tel , Service support ,
== END ==
LOC: MRI 09:25
PROVIDERS: PCP Internal Medicine; Referring Provider Orthopaedic Surgery; Visit Provider Orthopaedic Surgery
DX: M23.91 Unspecified internal derangement of right knee (principal)
CPT/HCPCS: 73721

== ENCOUNTER 2020-01-26 05:52 | Day surgery (SDC) | payer BC, SELFPAY ==
[2020-01-15 09:01] VITALS: BMI 27.4
[2020-01-26] VITALS (9 sets, daily range): BP systolic 91–125; BP diastolic 37–72; PULSE 65–80; RESP 16–18; TEMP 36.1–37.4; O2SAT 93–100; BMI 29.0
[2020-01-26] MEDS: Lactated Ringers 1,000 ML 100 ML IV ×2 (06:36→08:32)
--- NOTE | 2020-01-26 07:10 | HP.PCM_ITS ---
History and Physical Date of Admission: 01/26/20 Intake Intake Visit Reasons: RIGHT KNEE Chief Complaint: right knee Accompanied by: self Is patient in pain?: Yes Pain scale (1-10): 3 Allergies Opioids - Morphine Analogues Allergy (Verified 12/09/19 10:37) Itching Penicillins Allergy (Verified 12/09/19 10:37) Anaphylaxis MOST PAIN MEDS Adverse Reaction (Uncoded 10/08/19 12:08) Itching Medications Estradiol [Estrace (G)] 1.5 mg PO QDAY 12/07/19 [History Confirmed 01/15/20] celecoxib 200 mg capsule mg PO 01/15/20 [History Confirmed 01/15/20] PFSH Social History (Updated 01/15/20 @ 10:[address] Prasanna Sanchez, ) Smoking Status: Current every day smoker alcohol intake: current details: social substance use type: does not use caffeine: Yes what type of physical activity do you participate in: none, walking seatbelt use: always do you feel safe at home: Yes additional social history: [employer] [place] Patient is laid off for the winter HPI RIGHT KNEE: Details: Parts of this documentation were recorded by a scribe, this documentation accurately reflects the service provided and the decisions made by me, Dr. Prasanna Sanchez, 01/15/20 3511. MATTEO GLEASON is a 44 year old F here today for F/U on right knee. Patient has been resting and she has been using a hinged knee brace. DOI: 12/07/2019 She states that she has been having lateral knee pain which she feels is a achiness like a deep bruise. She states that brace has been very helpful in providing her with stability. When she is not using the brace she does have instability and she is unable to preform full extension. Denies any radiating leg pain. Denies numbness, tingling or other associated symptoms. Has only had 1 episode of popping. ROS Musc Reports system reviewed and no additional complaints, except as docu, Reports joint pain, Reports joint swelling, Reports stiffness Skin/Breast Reports system reviewed and no additional complaints, except as docu Neuro Yes system reviewed and no additional complaints, except as docu Ortho Exam Right Knee Date of injury: 12/07/19 Skin/Wound: No erythema, No ecchymosis, Yes swelling Homans Sign: No Knee ROM: No ROM-Extension -20 to 0 (lacking 7), Yes ROM-Flexion 0-140 Examination: Yes Lat jt line tenderness, Yes Kaleb's Test (lateral) Stability: NML: Anterior Drawer, NML: Posterior Drawer, NML: Valgus 30, NML: Varus 30 KNEE: pain with active extension Supplemental Info 12/16/2019 MRI right knee: Grade 1 sprain MCL horizontal anterior horn/body lateral meniscus tear 12/07/2019 x-ray right knee: Normal Assessment & Plan Problems 1. Derangement of anterior horn of lateral meniscus of right knee M23.341 Plan Patient educated that since she is not having much improvement then it is time to discuss surgery. Patient educated that she would have a right knee arthroscopy for a lateral meniscus repair vs meniscectomy. Patient educated that if she does have a repair then she will be NWB for 6 weeks post op. Patient states that she wishes to have the lateral meniscus repaired if it is able to be repaired. Reviewed the pre-operative plans with the patient. Risks and benefits of the procedure were fully explained, including but not limited to infection, neurovascular injury, continued pain, arthritis, stiffness, need for further surgery, re-injury, DVT, PE, general risks of anesthesia, and loss of limb or life. The patient understands all the risks and does wish to proceed with written consent. She will have a dressing on post op for 2 days then she may remove to shower. She may be looking at PT post operatively do to stiffness. Follow up 2 weeks post op or sooner if pain, swelling, numbness or associated symptoms, or concerns develop. All questions answered. Patient in agreement of plan. Coding Level of Care Code Off vis,est,level 3 Diagnoses Derangement of anterior horn of lateral meniscus of right knee M23.341 I have re-examined the patient. There are no clinical changes since date of exam Procedure Criteria Procedure Type: Elective COVID Risk Discussion: The surgeon/proceduralist and patient have discussed in detail the risk of exposure to and/or potential harm posed by the COVID-19 virus with having a surgery/procedure at this time versus the risk of delaying the surgery/procedure. It is not possible to know either the risk of delaying the surgery or procedure or chance of getting an infection with perfect accuracy, but a joint decision was made between the patient and the surgeon/proceduralist to proceed at this time with the scheduled surgery/procedure as indicated on the consent form.
[2020-01-26] MEDS: Bupiv/Epi 0.5% Mpf 30 ML Vial (07:41)
[2020-01-26] MEDS: Epinephrine (1 mg/ml) 1 MG/ML VIAL (07:41)
[2020-01-26] MEDS: Bupivacaine Mpf 0.5% 30 ML VIAL (07:50)
[2020-01-26] MEDS: MethylPREDNISolone Acetate 80 MG/ML Vial (07:55)
--- NOTE | 2020-01-26 07:59 | DCINST_ITS ---
Discharge Diet: No Restrictions Weight Bearing Status: Weight bearing as tolerated Keep extremity elevated above heart level: Operative Extremity Call your doctor if you observe: Shortness of breath, Chest pain Additional Instructions: Ice and elevate next 72 hours .keep dressing on clean and dry for 48 hours then may remove begin showering daily but do not submerge in tub or pool. After shower may apply Band-Aids . Encourage knee range of motion weightbearing as tolerated, use crutches until confident in knee then may discontinue. No strenuous activity. When not ambulating keep iced and elevated next 72 hours. Call with any questions or concerns. Allergies/Adverse Reactions: Allergies Opioids - Morphine Analogues Allergy (Verified 01/20/20 09:11) Itching Penicillins Allergy (Verified 01/20/20 09:11) Anaphylaxis MOST PAIN MEDS Adverse Reaction (Uncoded 01/20/20 09:11) Itching Medications to take at Discharge Estradiol [Estrace (G)] 1.5 mg PO QDAY 12/07/19 Ibuprofen [Advil] 200 mg PO Q6H PRN PRN 01/26/20 Primary Care Physician: Yordan Anton MD [Primary Care Provider] - Test Results: Test results from this visit will be discussed in further detail at your follow- up appointment, if applicable. Please Follow Up With: Prasanna Sanchez DO - 2 weeks
--- NOTE | 2020-01-26 08:02 | OP.PCM_ITS ---
Report of Operation Date of Procedure: 01/26/20 Description of Surgical Findings:: Preop diagnosis: Right knee anterior horn lateral meniscus tear Postoperative diagnosis: Small radial horizontal tear anterior horn lateral meniscus, grade 3 fissure lateral tibial plateau Procedure: Right knee arthroscopic partial lateral meniscectomy and evaluation of knee Anesthesia: General Estimated blood loss: 5 mL Tourniquet time: 20 minutes minutes 300 mmHg Complications: none Indication for procedure: 44-year-old female patient who has had ongoing anterior lateral knee pain who did have MRI evidence of an anterior horn lateral meniscus tear we did attempt conservative treatment which she was not successful with did wish to proceed with an elective arthroscopic surgery to attempt to alleviate her symptoms we did explain to her that the MRI evidence of tear was quite small. The patient did wish to proceed with an elective arthroscopic surgery to attempt to alleviate the symptoms. Risk benefits and alternatives of the procedure were reviewed including risk of bleeding infection nerve artery tissue damage need for further surgery continued pain and expected postoperative course. Procedure: The patient was met in the preoperative holding area. The operative extremity was identified by both patient and physician and family and marked. Patient was brought back to the operating room on a wheeled cart and transferred to the operating table in the supine position. Anesthesia was started. A well- padded tourniquet was placed on the operative extremity. A lower extremity leg rueda was secured to the operative extremity. The contralateral extremity was well-padded and the end of the bed was flexed to 90 degrees. The patient was prepped and draped in the usual sterile fashion. A timeout was called to ensure the proper patient, procedure, and extremity were being contemplated. 0.5% Marcaine with epinephrine was injected into the planned incisional areas under the skin only. An Esmarch was used to exsanguinate the extremity and the tourniquet was inflated. An 11 blade scalpel was used to make a stab incision in the anterior lateral portal. The arthroscope was inserted into the intercondylar notch and inflow and outflow tubes were attached. Arthroscopic visualization began. The medial compartment was entered. An 18-gauge spinal needle was used to establish the placement for anterior medial portal. An 11 blade scalpel was used to make a stab incision. Blunt probe was inserted fo llowed by a meniscal probe. It was free of meniscal or cartilage pathology. The ACL was found to be intact. The lateral compartment was entered there is noted to be a small anterior horn lateral meniscus tear which was debrided with use of a shaver the arthroscopic was then switched to the medial portal for further evaluation there was no further tearing evaluated with probe however there was noted to be a grade 3 fissure of the lateral tibial plateau however there was no loose cartilage which required debridement . The medial and lateral gutters were inspected and were free of loose bodies. The patellofemoral joint was inspected and was free of cartilage pathology. There was good patellar tracking. The knee was thoroughly irrigated and drained. An intra-articular injection with 5 cc 0.5% Marcaine plain and 40 mg of Depo-Medrol was injected intra-articularly. The arthroscope was removed the portals were closed with 3-0 nylon arthroscopic stitches. Followed by Xeroform 4 x 4's ABDs web roll and an Juancarlos wrap. The tourniquet was let down and the drapes were removed. All counts were correct. The patient was brought back to the PACU in stable condition.
[2020-01-26] MEDS: oxyCODONE 5 MG Tablet PO (10:00)
== END 2020-01-26 10:47 | disposition home or self-care (01) ==
LOC: SDC 05:53 → AC 05:54
PROVIDERS: Anesthesiology; PCP Internal Medicine; Referring Provider Orthopaedic Surgery; Visit Provider Orthopaedic Surgery
PROC: (CPT 29870; principal; 2020-01-26 07:10)
DX: S83.281A Other tear of lateral meniscus, current injury, right knee, initial encounter (principal); Z11.59 Encounter for screening for other viral diseases; F17.200 Nicotine dependence, unspecified, uncomplicated
CPT/HCPCS: 01400; 29881; 87635; 94799; J7120; J2405; U0003

== ENCOUNTER → 2020-05-25 | Outpatient (CLI) | payer BC, SELFPAY ==
[2020-04-22 13:06] VITALS: BMI 30.4
== END | disposition home or self-care (01) ==
LOC: LABSPEC 13:26
PROVIDERS: PCP Internal Medicine; Referring Provider Nurse Practitioner Family; Visit Provider Nurse Practitioner Family
DX: J02.9 Acute pharyngitis, unspecified (principal)
CPT/HCPCS: 87070; 87077; 87880

== ENCOUNTER 2021-03-28 07:26 | Emergency (ER) | payer OTHER, SELFPAY ==
[2021-03-28 07:26] VITALS: BP 120/78; PULSE 100; RESP 18; TEMP 36.2; O2SAT 100; BMI 31.8
--- NOTE | 2021-03-28 07:52 | ED.VIS.LOWEX ---
HPI History of Present Illness Chief Complaint: Lower Extremity Injury Narrative Narrative: Patient presents with left ankle pain after twisting it while at home. No other injuries she has no knee pain, no foot pain. This was an inversion mechanism with lateral ankle pain. [facility] Medical History (Updated 03/28/21 @ 08:[address] Agustín Lawrence MD) History of back problems History of fracture History of headache History of PCOS History of pneumonia Incontinence Severe headache SOB (shortness of breath) Vision problems Home Medications estradiol 0.1 mg/24 hr weekly transdermal patch 1 patch TRANSDERMAL QWEEK #4 ea 04/22/20 [Rx Last Taken Unknown] albuterol sulfate 90 mcg/actuation aerosol inhaler 2 puff INHALATION Q6H PRN #8.5 g 02/18/21 [Rx Last Taken Unknown] naproxen [Naprosyn] 500 mg PO BID #20 tab 03/28/21 [Rx Last Taken Unknown] Allergy/AdvReac Type Severity Reaction Status Date / Time Opioids - Morphine Analogues Allergy Itching Verified 03/28/21 07:26 Penicillins Allergy Anaphylaxis Verified 03/28/21 07:26 MOST PAIN MEDS AdvReac Itching Uncoded 03/28/21 07:26 Family History Mother Heart disease Alcoholism Angina at rest Arthritis Lung cancer Myocardial infarction Hypertension Brother Alcoholism Asthma Arthritis Father Arthritis Diabetes Hypertension Sister Alcoholism Arthritis Lung cancer Other Cancer Surgical History H/O tubal ligation History of carpal tunnel release History of endometrial ablation History of wisdom tooth extraction, class II edentulism S/P laparoscopic assisted vaginal hysterectomy (LAVH) (~08/14/18) S/P right knee surgery Social History (Updated 08/19/20 @ 15:53 by Darshan Angeles NP, [employer] [facility]) Smoking Status: Current every day smoker tobacco type: cigarettes alcohol intake: current details: social substance use type: does not use caffeine: Yes what type of physical activity do you participate in: none and walking seatbelt use: always do you feel safe at home: Yes additional social history: Brian Velazco Patient is laid off for the winter ROS ROS ED ROS Narrative Past medical history: Unremarkable Medications: Reviewed Social history: Noncontributory Review of systems: Musculoskeletal: Left ankle pain Skin: No abrasions or lacerations Neurological: No weakness or paresthesias Hematologic: No easy bleeding or easy bruising EXAM Physical Exam Narrative Exam Narrative: Physical exam General: Patient does not appear in significant distress . Head: Normocephalic, Atraumatic Neck: No C-spine tenderness Cardiovascular: Normal distal pulses Back: Nontender, Normal Inspection. Extremities: Left lateral malleolus is tender, there is no proximal fibular tenderness, no proximal 5th metatarsal tenderness. No obvious laxities. Some swelling over the lateral malleolus. Skin: No abrasions, no lacerations Neurological: Normal strength and sensation Const Vital Signs: 03/28/21 07:26 Temperature 97.1 F L Temperature Source Temporal Pulse Rate 100 Respiratory Rate 18 Blood Pressure 120/78 Blood Pressure Mean 92 Pulse Ox 100 Oxygen Delivery Method Room Air MDM MDM MDM Narrative Medical decision making narrative: Patient has an ankle sprain and will be treated as such with an Aircast and NSAIDs. Radiography Diagnostic Testing: Clinical Impression(s) from Imaging Studies Ankle X-Ray 03/28/21 08:00 IMPRESSION: Mild soft tissue swelling. Electronically Signed: Harjit Diamond MD at 8:24 EDT , Service support , X-ray of the ankle reviewed by me and the radiologist does not show any fracture. Discharge Plan Triage Chief Complaint: Lower Extremity Injury ED Provider: Agustín Lawrence Dx/Rx/DC Orders Clinical Impression: Ankle sprain Instructions: Ankle Inversion (Strength), ED Ankle Sprain (Adult) Prescriptions: New naproxen [Naprosyn] 500 mg tablet 500 mg PO BID Qty: 20 RF: 0 No Action estradiol 0.1 mg/24 hr patch weekly 1 patch transdermal QWEEK Qty: 4 RF: 12 albuterol sulfate 90 mcg/actuation HFA aerosol inhaler 2 puff inhalation Q6H PRN (Reason: shortness of breath or wheezing) Qty: 8.5 RF: 0 Primary Care Provider: Yordan Anton Referrals: Yordan Anton MD [Primary Care Provider] - 2 Days Disposition Disposition: Home, Self Care
--- NOTE | 2021-03-28 08:00 | RAD_ITS ---
STUDY: X-RAY - LEFT ANKLE REASON FOR EXAM: Female, 45 years old. Pain following injury. TECHNIQUE: 4 view(s) of the ankle. COMPARISON: Comparison is made with prior study dated 10/05/2012. FINDINGS: Normal visualized distal tibia and fibula. Normal medial and lateral malleoli. Normal tibiotalar articulation and ankle mortise. There is evidence of a talar neck beak. The visualized subtalar, talonavicular, calcaneocuboid and tarsal articulations are normal. Soft tissue swelling. RAD/Ankle min 3 Views IMPRESSION: Mild soft tissue swelling. Electronically Signed: Harjit Diamond MD at 8:24 EDT , Service support ,
[2021-03-28 09:06] VITALS: RESP 18
== END 2021-03-28 09:06 | disposition home or self-care (01) ==
PROVIDERS: Emergency Provider Emergency Medicine; PCP Internal Medicine
DX: S93.402A Sprain of unspecified ligament of left ankle, initial encounter (principal); X50.1XXA Overexertion from prolonged static or awkward postures, initial encounter; Y93.9 Activity, unspecified; Y92.009 Unspecified place in unspecified non-institutional (private) residence as the place of occurrence of the external cause; E28.2 Polycystic ovarian syndrome; F17.210 Nicotine dependence, cigarettes, uncomplicated
CPT/HCPCS: 73610; 99283

== ENCOUNTER → 2022-02-19 | Outpatient (CLI) | payer BC, SELFPAY ==
--- NOTE | 2022-02-19 13:38 | RAD_ITS ---
EXAM: XR CHEST, 2 VIEWS CLINICAL INDICATION: Tobacco use, Fatigue, Wt. loss TECHNIQUE: Frontal and lateral views of the chest. This report was created using [employer] report generation technology. COMPARISON: 05/13/17. FINDINGS: LUNGS AND PLEURAL SPACES: Unremarkable. No consolidation or edema. No pneumothorax. No effusion. HEART: Unremarkable. Cardiac silhouette not enlarged. MEDIASTINUM: Central airways and mediastinal contour are unremarkable. BONES/JOINTS: Unremarkable. SOFT TISSUES: Unremarkable. RAD/Chest PA and Lateral IMPRESSION: No radiographic evidence of acute cardiopulmonary disease. Electronically Signed: Luciano Stone MD at 18:45 EDT ,
[2022-02-19 15:33] LABS: Vitamin B12 419 pg/mL (211-911); Vitamin D,25 Hydroxy 34.1 ng/mL
[2022-02-19 15:35] LABS: Absolute Lymphocyte Count 2.26 X10^3/uL (0.83-4.51); Absolute Neutrophil Count 4.3 X10^3/uL (2.0-7.7); Basophil# 0.05 X10^3/uL; Basophil% 0.7 % (0-1); Eosinophil# 0.12 X10^3/uL; Eosinophils% 1.7 % (0-5); Hematocrit 41.6 % (37-47); Lymphocyte # 2.26 X10^3/ul (0.83-4.51); Lymphocyte % 31.2 % (19-41); Mean Corp Hgb Conc 33.7 g/dL (32-36); Mean Corpuscular Hgb 29.7 pg (27.0-32.0); Mean Corpuscular Volume 88.1 fL (81-99); Mean Platelet Vol. 10.7 fl (6.2-12.0); Monocyte# 0.51 X10^3/uL; NRBC Flagged by Analyzer 0 % (0-5); Neutrophil # 4.27 X10^3/uL (2.7-7.7); Platelet Count 305 K/mm3 (150-450); RBC Distribution Width CV 14.1 % (11.6-14.6); RBC Distribution Width SD 45.7 fl (35.1-43.9); Red Blood Count 4.72 M/mm3 (4.2-5.4); White Blood Count 7.2 K/mm3 (4.4-11.0)
[2022-02-19 15:36] LABS: ALB/GLOB Ratio 1.2 RATIO (0.9-2.4); AST(SGOT) 15 U/L (15-37); Alanine Aminotransfer ALT/SGPT 22 U/L (13-56); Alkaline Phosphatase 79 U/L (45-117); Amylase 48 U/L (25-115); Anion Gap 6 (5-15); BUN 10 mg/dL (7-18); BUN/Creat Ratio 11.4 RATIO (10-20); Calcium,Total 9.6 mg/dL (8.5-10.1); Chloride 108 mmol/L (98-107); Cholesterol 262 mg/dL (200); Creatinine, Serum 0.88 mg/dL (0.55-1.02); EST Glomerular Filtration Rate 74 mL/min (>60); Est Glom Filt Rate - Afr Amer 89 mL/min (>60); Globulin 3.4 g/dL (2.2-4.2); Glucose 91 mg/dL (74-106); High Density Lipoprotein 62 mg/dL; Lipase 113 U/L (73-393); Potassium 3.9 mmol/L (3.5-5.1); Protein, Total 7.4 g/dL (6.4-8.2); Sodium Level 141 mmol/L (136-145); Thyroid Stim Hormone (TSH) 1.89 uIU/mL (0.358-3.74); Triglycerides 82 mg/dL; Very Low Density Lipoprotein 16 mg/dL (5-40)
[2022-02-19 15:47] LABS: Erythrocyte Sedimentation Rate 10 mm/hr (0-30)
== END | disposition home or self-care (01) ==
PROVIDERS: PCP Internal Medicine; Referring Provider Physician Assistant; Visit Provider Physician Assistant
DX: R53.83 Other fatigue (principal); Z80.1 Family history of malignant neoplasm of trachea, bronchus and lung; R63.4 Abnormal weight loss; E55.9 Vitamin D deficiency, unspecified; G47.10 Hypersomnia, unspecified; R10.9 Unspecified abdominal pain; E78.5 Hyperlipidemia, unspecified; E61.2 Magnesium deficiency; Z13.29 Encounter for screening for other suspected endocrine disorder; E53.8 Deficiency of other specified B group vitamins
CPT/HCPCS: 36415; 71046; 80053; 80061; 82150; 82306; 82607; 83690; 83735; 84439; 84443; 85025; 85652

== ENCOUNTER → 2022-03-02 | Outpatient (CLI) | payer BC, SELFPAY ==
--- NOTE | 2022-03-02 08:17 | BI_ITS ---
MAMMOGRAPHY - BILATERAL SCREENING 3-D TOMOSYNTHESIS REASON FOR EXAM: Female, 46 years old. Screening PERTINENT HISTORY: No significant family history. TECHNIQUE: 2-D mammograms and 3-D Tomosynthesis of the breast (s) were performed. CAD was performed. COMPARISON: 02/15/2017 FINDINGS: The breast composition is composed of scattered fibroglandular density. Scattered benign calcifications are seen. No dense spiculated masses or suspicious microcalcifications are identified. No architectural distortion is identified. There is no skin thickening or retraction. There has been no significant change since the prior study. BI/SCRN MAMM (CAD)W/MARY BILAT IMPRESSION: No mammographic signs of malignancy. Routine yearly mammograms recommended. ASSESSMENT CATEGORY: BIRADS Category 1: Negative. A letter regarding these results will be sent to the patient by the facility within 30 days. FOLLOW UP RECOMMENDATION: Yearly follow up mammogram recommended. (A) Approximately 10% of breast cancers are not detected by mammography. A normal mammogram should not delay biopsy of a clinically suspicious abnormality. Electronically Signed: Frantz Kaiser MD at 8:44 EDT ,
== END | disposition home or self-care (01) ==
LOC: OPBI 08:17
PROVIDERS: PCP Internal Medicine; Visit Provider Physician Assistant
DX: Z12.31 Encounter for screening mammogram for malignant neoplasm of breast (principal)
CPT/HCPCS: 77063; 77067

== ENCOUNTER → 2022-03-23 | Outpatient (CLI) | payer BC, SELFPAY ==
--- NOTE | 2022-03-21 15:19 | SLEEP ---
Technical Failure of HST device - removed charges so that study can be repeated with a different unit.
== END | disposition home or self-care (01) ==
PROVIDERS: PCP Internal Medicine; Referring Provider Physician Assistant; Visit Provider Physician Assistant
DX: G47.10 Hypersomnia, unspecified (principal)
CPT/HCPCS: 95806

== ENCOUNTER 2022-05-01 09:00 | Outpatient (CLI) | payer BC, SELFPAY | END 2022-05-01 23:59 | disposition home or self-care (01) | LOC: SL 09:24 | PROVIDERS: PCP Internal Medicine; Visit Provider Physician Assistant | DX: G47.33 Obstructive sleep apnea (adult) (pediatric) (principal) ==

== ENCOUNTER 2022-12-11 11:12 | Emergency (ER) | payer BC, SELFPAY ==
[2022-12-11 11:13] VITALS: BP 135/78; PULSE 81; RESP 16; TEMP 36.6; O2SAT 96; BMI 30.3
--- NOTE | 2022-12-11 11:34 | EX.ED.UPPERE ---
HPI History of Present Illness HPI Narrative: 39-year-old female with no signet past medical history. Tripped and fell yesterday over a landscaping timber and injured her left wrist. Was still painful today she went to have it evaluated. Denies any other significant injury. No head injury. No LOC. Chief Complaint: Upper Extremity Injury Informant: patient and spouse/S.O. Occured/Mechanism Mechanism/Context: Yes injury and Yes blunt trauma Onset/Context/Timing Onset: Yesterday Context: Sudden Onset Timing: Continuous Quality of Pain: Dull and Aching Current Severity: Moderate Maximum Severity: Moderate Associated Symptoms Associated Symptoms: Negative for Parasthesia, Weakness or Loss of Funtion Narrative Narrative: 47-year-old female tripped and fell yesterday injuring her left wrist. She is right-hand dominant. No prior history or surgery to her left wrist. No other significant injuries. Prior similar symptoms: No Recent Illness/Hospitalization: No PFSH PFSH Medical History (Updated 12/11/22 @ 12:[address] Raghavendra Garrett MD) History of back problems History of fracture History of headache History of PCOS History of pneumonia Incontinence Severe headache SOB (shortness of breath) Vision problems Home Medications albuterol sulfate 90 mcg/actuation aerosol inhaler 2 puff inhalation Q6H PRN shortness of breath or wheezing #8.5 grams 02/18/21 [Rx Last Taken Unknown] CBD OIL PO .QD 02/19/22 [History Last Taken Unknown] estradiol 1 mg tablet 1 mg PO DAILY #30 tabs 07/27/22 [Rx Last Taken Unknown] trazodone 100 mg tablet 100 mg PO QHS PRN insomnia #30 tabs 10/11/22 [Rx Last Taken Unknown] Allergy/AdvReac Type Severity Reaction Status Date / Time hydrocodone Allergy Mild Itching Verified 12/11/22 11:15 oxycodone Allergy Mild Itching Verified 12/11/22 11:15 Opioids - Morphine Analogues Allergy Itching Verified 02/19/22 10:58 Penicillins Allergy Anaphylaxis Verified 02/19/22 10:58 Family History Mother Heart disease Alcoholism Angina at rest Arthritis Lung cancer Myocardial infarction Hypertension Brother Alcoholism Asthma Arthritis Father Arthritis Diabetes Hypertension Sister Alcoholism Arthritis Lung cancer Other Cancer Surgical History H/O tubal ligation History of carpal tunnel release History of endometrial ablation History of wisdom tooth extraction, class II edentulism S/P laparoscopic assisted vaginal hysterectomy (LAVH) (~08/14/18) S/P right knee surgery Social History Smoking Status: Current every day smoker tobacco type: cigarettes alcohol intake: current details: social substance use type: does not use caffeine: Yes what type of physical activity do you participate in: none and walking seatbelt use: always do you feel safe at home: Yes additional social history: Brian Velazco Patient is laid off for the winter ROS ROS ED ROS Narrative No recent illness. Review of Systems ROS Unobtainable: Denies due to encephalopathy Constitutional Constitutional ED: Denies chills or fever(s) Eyes Eyes: Denies blurry vision ENT ENT ED: Denies ear pain Cardiovascular Cardiovascular: Denies chest pain Respiratory/Chest Respiratory/Chest: Denies cough or dyspnea Gastrointestinal Gastrointestinal: Denies abdominal pain Genitourinary Genitourinary ED: Denies dysuria or hematuria Musculoskeletal Musculoskeletal: Denies back pain Integumentary Denies abscess or Abrasions Neurologic Neurologic: Denies headache(s) Psychiatric Psychiatric: Denies anxiety Endocrine Endocrinology: Denies cold intolerance Hematologic/Lymphatic Hematologic/Lymphatic: Denies easy bleeding Allergic/Immunologic Allergic/Immunologic ED: Denies mouth swelling or tongue swelling EXAM Physical Exam Narrative Exam Narrative: 47-year-old female no acute distress. Vital signs stable afebrile. HEENT exam unremarkable atraumatic. C-spine nontender. Back and spine nontender. Trachea midline. Lungs clear to auscultation. Chest wall nontender. Ribs nontender. Abdomen soft nontender. Heart regular rate and rhythm rate about 80. No murmur. Pelvic girdle intact. Moving all 4 extremities. Neurovascular intact. Left wrist tender. Mildly swollen. Pain with flexion extension. Able to open close her left hand. Normal radial pulse. Left shoulder, humerus, elbow and proximal forearm are all nontender no deformity. Right upper and both lower extremities are unremarkable. She has full flexion-extension of both hips, knees and ankles. She is awake and alert. No focal motor deficits. Const Vital Signs: 12/11/22 11:13 Temperature 97.8 F Temperature Source Temporal Pulse Rate 81 Respiratory Rate 16 Blood Pressure 135/78 H Blood Pressure Mean 97 Pulse Ox 96 Oxygen Delivery Method Room Air Positive well nourished and well developed; Negative for obese, cachectic, contractures or unkempt General Appearance ED: well developed and NAD; Negative for unkempt, cachectic, contractures, cyanotic or diaphoretic Nutritional Appearance: Negative for cachectic or obese HEENT Reports moist mucous membranes normocephalic and atraumatic; Negative for trauma or tenderness Eyes PERRL and EOMs intact bilaterally General Eye ED: Negative for other Neck full ROM and supple General: Negative for tenderness Lymph Lymphatic: Negative for other Chest Wall inspection of chest normal and palpation of chest normal Chest: Negative for other Resp normal respiratory effort and clear to auscultation bilaterally Effort and Inspection: Negative for pain with movement Auscultation: Negative for rales, rhonchi or wheezes Cardio regular rate, regular rhythm, S1 normal heart sound, S2 normal heart sound and no murmurs Rate: Negative for bradycardia or tachycardic Rhythm: Negative for abnormal rhythm GI non-tender, non-distended and no masses Inspection: Negative for abdominal distention Auscultation: normoactive bowel sounds Palpation: soft; Negative for tender or guarding Back/Spine no CVA tenderness General Back: Negative for CVA tenderness Cervical Spine: Negative for cervical spine tenderness Thoracic Spine / Upper Back: Negative for thoracic spinal tenderness Lumbar Spine / Lower Back: Negative for lumbar spinal tenderness Extremity normal to inspection and full ROM Extremity Narrative: Except tenderness to the left wrist. Mild swelling. Decreased flexion extension. Pain with range of motion. No gross bony deformity. Left hand neurovascular intact. Left elbow and proximal forearm nontender. General Extremety ED: Yes edema General Extremity: edema Neuro oriented x3, CN's II-XII intact bilaterally, moves all extremities and no focal motor deficits Sensorium / Orientation: alert, oriented to person, oriented to place and oriented to time; Negative for orientation impaired, lethargic or stuporous Motor Exam: strength 5/5 throughout Psych mental status grossly normal Appearance: Negative for unkempt Attitude: No agitated Mood & Affect: Negative for depressed, anxious or tearful Skin General Skin Exam: Negative for petechiae Lesions: no lesions Rashes: no rashes Trauma: no lacerations or abrasions; Negative for laceration MDM MDM MDM Narrative Medical decision making narrative: 39-year-old female fell yesterday injuring her left wrist concern is for fracture of wrist versus sprain. X-ray being obtained. She already took Motrin at home for pain. Repeat exam doing well at 12:45 PM. Discussed x-rays with the patient. Diagnosed with a left wrist sprain. She did not want a Velcro wrist splint. Ice and elevate. Motrin and Tylenol. Follow-up if not improving. History & Record Review Discussion w/independent historian: Patient and Family Radiography Chest X-Ray - ED: Read by ED Physician Diagnostic Testing: Left wrist x-ray, 3 views, interpreted by myself and radiologist shows no acute abnormality. No fracture no dislocation. I did go over the films with the patient and her . Discharge Plan Triage Chief Complaint: Upper Extremity Injury ED Provider: Raghavendra Garrett Dx/Rx/DC Orders Clinical Impression: Fall, Left wrist sprain Instructions: ED Wrist Sprain Prescriptions: No Action albuterol sulfate 90 mcg/actuation HFA aerosol inhaler 2 puff inhalation Q6H PRN (Reason: shortness of breath or wheezing) Qty: 8.5 0RF CBD OIL PO .QD estradiol 1 mg tablet 1 mg PO DAILY Qty: 30 12RF trazodone 100 mg tablet 100 mg PO QHS PRN (Reason: insomnia) Qty: 30 12RF Primary Care Provider: Yordan Anton Referrals: Yordan Anton MD [Primary Care Provider] - 1 Week if not improving Activity Restrictions/Additional Instructions: Your x-rays look good. Diagnoses left wrist sprain. Ice and elevate to decrease pain and swelling. Motrin for pain and swelling. Tylenol for pain. This should progressively start feeling better. If its not improving in a week to 10 days get it reevaluated. Disposition Disposition: Home, Self Care
--- NOTE | 2022-12-11 12:10 | RAD_ITS ---
STUDY: X-RAY - LEFT WRIST REASON FOR EXAM: Female, 47 years old. fall TECHNIQUE: 3 view(s) of the wrist were obtained. COMPARISON: None. FINDINGS: Normal visualized distal radius and ulna. Normal radiocarpal articulation. Normal distal radioulnar articulation. Normal carpal bones. Normal carpal articulations. Normal carpometacarpal articulation of the thumb. Normal second through fifth carpometacarpal articulations. Normal visualized metacarpal bones. The soft tissue structures are unremarkable. RAD/Wrist min 3 Views IMPRESSION: Normal x-ray examination of the wrist. Electronically Signed: Frantz Kaiser MD at 12:42 EDT ,
== END 2022-12-11 13:02 | disposition home or self-care (01) ==
PROVIDERS: Emergency Provider Emergency Medicine; PCP Internal Medicine; Visit Provider Emergency Medicine
DX: S63.92XA Sprain of unspecified part of left wrist and hand, initial encounter (principal); F17.210 Nicotine dependence, cigarettes, uncomplicated; Z90.710 Acquired absence of both cervix and uterus; W01.198A Fall on same level from slipping, tripping and stumbling with subsequent striking against other object, initial encounter
CPT/HCPCS: 73110; 99282

== ENCOUNTER → 2023-01-26 | Outpatient (CLI) | payer BC, SELFPAY ==
--- NOTE | 2023-01-26 08:00 | MRI_ITS ---
EXAM: MR LEFT UPPER EXTREMITY WITHOUT INTRAVENOUS CONTRAST CLINICAL INDICATION: LT wrist pain, [id number] TECHNIQUE: Multiplanar and multisequence MR images of the left upper extremity without intravenous contrast. COMPARISON: No relevant prior studies available. FINDINGS: BONES/JOINTS: At least mild degenerative changes at the triscaphe joint and first carpometacarpal joint. No fracture. No abnormal bone marrow signal. No joint effusion. MUSCLES: Unremarkable. No edema or myositis. OTHER SOFT TISSUES: Unremarkable. No solid or cystic mass. LUNG APICES: Full-thickness tear of the triangular fibrocartilage articular disc near its junction with the radial attachment. MRI/Upper Ext Joint Only(Routine) IMPRESSION: Full-thickness tear of the triangular fibrocartilage articular disc near its junction with the radial attachment. Electronically Signed: Luciano Stone MD at 22:15 EDT ,
== END | disposition home or self-care (01) ==
LOC: MRI 08:11
PROVIDERS: PCP Internal Medicine
DX: S69.92XA Unspecified injury of left wrist, hand and finger(s), initial encounter (principal); M79.643 Pain in unspecified hand
CPT/HCPCS: 73221

== ENCOUNTER → 2023-03-27 | Outpatient (CLI) | payer BC, SELFPAY ==
--- NOTE | 2023-03-27 11:10 | RAD_ITS ---
INDICATION: low back pain EXAMINATION/TECHNIQUE: X-RAY - XR Spine Lumbar 2 or 3 Views COMPARISON: FINDINGS: VERTEBRAE: Preserved vertebral body height. No fracture. Grade 1 anterolisthesis of L4 over L5. Preservation of the normal lumbar lordosis. No significant facet arthropathy. DISCS: Severe disc space narrowing of L4-L5. Minimal disc space narrowing of L3-L4. INCLUDED ABDOMEN: Included bowel gas pattern is non-obstructive. RAD/Lumbar Spine 2 or 3 Views IMPRESSION: Severe disc space narrowing of L4-L5 with grade 1 anterolisthesis of L4 over L5. Electronically Signed: Delgado Arvizu MD at 11:49 EDT ,
== END | disposition home or self-care (01) ==
PROVIDERS: PCP Internal Medicine; Referring Provider Physician Assistant; Visit Provider Physician Assistant
DX: M54.50 Low back pain, unspecified (principal)
CPT/HCPCS: 72100

== ENCOUNTER 2023-08-08 16:30 | Emergency (ER) | payer BC, SELFPAY ==
[2023-08-08 16:32] VITALS: BP 150/92; PULSE 104; RESP 20; TEMP 36.3; O2SAT 98; BMI 33.5
--- NOTE | 2023-08-08 16:48 | EKG12_ITS ---
Test Reason : SHORT OF BREATH Blood Pressure : / mmHG Vent. Rate : 087 BPM Atrial Rate : 087 BPM P-R Int : 188 ms QRS Dur : 100 ms QT Int : 352 ms P-R-T Axes : 046 076 045 degrees QTc Int : 423 ms Normal sinus rhythm Incomplete right bundle branch block Borderline ECG Confirmed by KAYLEIGH BERNARDO, JEFF ([id number]), school photograph editor DIMAS MCPHERSON ([id number]) on 08/12/2023 9:28:09 AM Referred By: SUSAN Confirmed By:VENKATA VICTOR MD
[2023-08-08 16:49] VITALS: BP 139/99; PULSE 97; RESP 12; O2SAT 98
--- NOTE | 2023-08-08 16:49 | ED.VIS.DYS ---
HPI History of Present Illness Chief Complaint: Shortness of Breath Detail of Chief Complaint: Shortness of breath Informant: patient Narrative Narrative: Patient presents with shortness of breath for the last 2 weeks that is gotten worse since yesterday. She describes feeling like she cannot get a good full breath then and initially she thought it was related to her neck because she has neck spurs. Patient's been seeing a chiropractor and has not been get much relief. Patient is also had a fullness in her right upper abdomen and is wondering if that is causing some of her trouble breathing. Patient states that she normally is able to eat a full pizza but only ate 2 pieces yesterday because she felt so full. She gets full easily when eating. She denies fevers or chills or sweats. She denies significant cough outside of her smoker's cough. No history of anxiety or panic attacks. Denies increased stressors. She has no heart history. No recent travel or surgery no history of PE or DVT. [facility] Medical History History of back problems History of fracture History of headache History of PCOS History of pneumonia Incontinence Screening for colon cancer Severe headache SOB (shortness of breath) Vision problems Home Medications estradiol 1 mg tablet 1.5 mg (1.5 x 1 mg) PO DAILY #45 tabs 01/29/23 [Rx Last Taken Unknown] trazodone 100 mg tablet 100 mg PO QHS PRN insomnia #30 tabs 01/29/23 [Rx Last Taken Unknown] cyclobenzaprine 10 mg tablet 10 mg PO TID PRN muscle spasm #20 tabs 03/27/23 [Rx Last Taken Unknown] prednisone 10 mg tablet 10 mg PO DIRECTED #30 tabs 03/27/23 [Rx Last Taken Unknown] doxycycline monohydrate 100 mg capsule 100 mg PO BID #20 CAPSULES 08/08/23 [Rx Last Taken Unknown] prednisone 20 mg tablet 20 mg PO BID #10 tabs 08/08/23 [Rx Last Taken Unknown] Allergy/AdvReac Type Severity Reaction Status Date / Time hydrocodone Allergy Mild Itching Verified 08/08/23 16:31 oxycodone Allergy Mild Itching Verified 08/08/23 16:31 Opioids - Morphine Analogues Allergy Itching Verified 08/08/23 16:31 Penicillins Allergy Anaphylaxis Verified 08/08/23 16:31 Family History Mother Heart disease Alcoholism Angina at rest Arthritis Lung cancer Myocardial infarction Hypertension Brother Alcoholism Asthma Arthritis Father Arthritis Diabetes Hypertension Sister Alcoholism Arthritis Lung cancer Other Cancer Surgical History H/O tubal ligation History of carpal tunnel release History of endometrial ablation History of wisdom tooth extraction, class II edentulism S/P laparoscopic assisted vaginal hysterectomy (LAVH) (~08/14/18) S/P right knee surgery Social History Smoking Status: Current every day smoker tobacco type: cigarettes alcohol intake: current details: social substance use type: does not use caffeine: Yes what type of physical activity do you participate in: none and walking seatbelt use: always do you feel safe at home: Yes additional social history: Brian Velazco Patient is laid off for the winter ROS ROS ED Review of Systems ROS Unobtainable: other Constitutional Constitutional ED: Reports lethargy; Denies chills, fever(s), sweats or weight loss Eyes Eyes: Denies blurry vision, change in vision or diplopia ENT ENT ED: Denies rhinorrhea or sore throat Cardiovascular Cardiovascular: Reports chest pain; Denies orthopnea Respiratory/Chest Respiratory/Chest: Reports cough, dyspnea and dyspnea on exertion; Denies orthopnea or sputum Gastrointestinal Gastrointestinal: Reports abdominal pain; Denies diarrhea, nausea or vomiting Genitourinary Genitourinary ED: Denies dysuria, hematuria or urinary frequency Musculoskeletal Musculoskeletal: Denies arthralgias, back pain, myalgias or neck pain Integumentary Denies abscess, Abrasions or rash Neurologic Neurologic: Denies headache(s) or weakness Psychiatric Psychiatric: Denies anxiety, depression or suicidal thoughts Endocrine Endocrinology: Denies polydipsia, polyphagia or polyuria Hematologic/Lymphatic Hematologic/Lymphatic: Denies easy bleeding, easy bruising or lymphadenopathy Allergic/Immunologic Allergic/Immunologic ED: Denies mouth swelling, tongue swelling or urticaria EXAM Physical Exam Const Vital Signs: 08/08/23 16:32 08/08/23 16:49 08/08/23 16:50 Temperature 97.4 F L Temperature Source Temporal Pulse Rate 104 H 97 Respiratory Rate 20 H 12 Respiratory Effort Normal Non-Labored Respiratory Depth Normal Respiratory Pattern Normal Blood Pressure 150/92 H 139/99 H Blood Pressure Mean 111 112 Pulse Ox 98 98 Oxygen Delivery Method Room Air Room Air 08/08/23 17:03 08/08/23 19:05 Temperature 98.1 F Temperature Source Pulse Rate 86 81 Respiratory Rate 15 16 Respiratory Effort Respiratory Depth Respiratory Pattern Normal Blood Pressure 135/77 H Blood Pressure Mean 96 Pulse Ox 97 Oxygen Delivery Method Positive well nourished and well developed General Appearance ED: well developed and NAD HEENT Reports TM's clear and moist mucous membranes normocephalic and atraumatic; Negative for trauma or tenderness Tympanic Membrane ED: Yes TM's clear Eyes PERRL and EOMs intact bilaterally General Eye ED: Negative for pale conjunctiva or scleral icterus Neck no lymphadenopathy, supple and no JVD General: Negative for tenderness Chest Wall inspection of chest normal and palpation of chest normal Chest: Negative for tenderness Resp normal respiratory effort and clear to auscultation bilaterally Resp Narrative: Faint expiratory wheezes bilaterally. No relocation associate muscles or retractions. Effort and Inspection: Negative for respiratory distress or pain with movement Auscultation: wheezes; Negative for rhonchi or diminished lung sounds Cardio regular rate, regular rhythm, S1 normal heart sound, S2 normal heart sound and no murmurs Peripheral Pulses: pulses 2+ throughout GI normal to inspection, nondistended, normoactive bowel sounds, soft to palpation, non-distended and no masses GI Narrative: Mild tenderness over the right upper quadrant and epigastric region. There is no rebound, rigidity, or peritoneal signs. No mass palpated. Back/Spine no CVA tenderness and no thoracic nor lumbar tenderness Extremity normal to inspection General Extremety ED: Negative for edema General Extremity: Negative for edema Neuro oriented x3, CN's II-XII intact bilaterally, no sensory deficits noted and gait normal Sensorium / Orientation: awake, alert, oriented to person, oriented to place and oriented to time Motor Exam: strength 5/5 throughout and strength abnormal Psych mental status grossly normal Skin no rashes or lesions noted and no wounds MDM MDM MDM Narrative Medical decision making narrative: Patient presents with nondescript dyspnea and a chronic smoker's cough. She complains of exertional dyspnea. She feels like there is pressure in her throat at times and upper abdomen and she cannot get a full breath in. IV line established. EKG obtained on arrival showed a sinus rhythm with rate of 87 bpm with incomplete right bundle branch block otherwise no acute findings. CBC with differential count of 10.5 with hemoglobin 14 and platelet count of 322. Chemistries were unremarkable. Troponin was normal at 6 and BNP was normal at 6.0. Lipase was normal at 40. LFTs were normal. D-dimer was elevated 0.50 therefore CTA of the chest was obtained which was negative for PE. There was some groundglass opacity in the right base that was nonspecific. Patient also had a nodule in her thyroid. Patient also had a CT scan of the abdomen pelvis that showed essentially no acute findings. She was given a DuoNeb aerosol in the department and she did have some symptomatic relief with that. Given the patchy opacity in the right base will treat for possible pneumonia with Levaquin and will write for albuterol MDI and prednisone for 5 days. She will follow-up with her primary care physician regarding the thyroid nodule finding and radiology recommended ultrasound to evaluate further. Clinically she looks well. Etiology of this early satiety and fullness in her upper abdomen unclear. Will refer to GI also for follow-up. Lab Data Attestation: I reviewed the patient's lab results. Labs: Laboratory Results - last 24 hr 08/08/23 17:00 WBC 10.5 RBC 4.88 Hgb 14.1 Hct 42.6 MCV 87.3 MCH 28.9 MCHC 33.1 RDW Std Deviation 45.1 H RDW Coeff of Ayush 14.0 Plt Count 322 MPV 9.8 Immature Gran % (Auto) 0.500 Neut % (Auto) 58.2 Lymph % (Auto) 25.9 Clarke % (Auto) 10.5 H Eos % (Auto) 4.2 Baso % (Auto) 0.7 Absolute Neuts (auto) 6.1 Absolute Lymphs (auto) 2.71 Nucleated RBC % 0 D-Dimer Quant (PE/DVT) 0.50 H Sodium 139 Potassium 3.8 Chloride 109 H Carbon Dioxide 26.0 Anion Gap 4 L BUN 14 Creatinine 0.94 Estim Creat Clear Calc 76.05 Est GFR (MDRD) Af Amer 81 Est GFR (MDRD) Non-Af 67 BUN/Creatinine Ratio 14.8 Glucose 92 Calcium 9.3 Total Bilirubin 0.20 AST 22 ALT 40 Alkaline Phosphatase 76 Troponin I High Sens 6 B-Natriuretic Peptide 6.0 Total Protein 7.2 Albumin 3.8 Globulin 3.4 Albumin/Globulin Ratio 1.1 Lipase 40 Radiography Diagnostic Testing: Clinical Impression(s) from Imaging Studies Abdomen/Pelvis CT 08/08/23 17:25 IMPRESSION: No acute abnormalities within the abdomen or pelvis status post hysterectomy. Tiny hypoattenuated densities in the right lobe of the liver too small to characterize. This may be further assessed with MRI if clinically warranted Incidental finding of metallic clip in the soft tissues of left anterior lateral pelvic wall. Electronically Signed: Tony Yadav MD at 18:22 EST , Chest CTA 08/08/23 17:25 IMPRESSION: Subtle patchy groundglass density at the right base of uncertain significance possibly inflammatory. No evidence for pulmonary embolus. Incidental finding of tiny solid nodule in the right lobe of thyroid demonstrating focus of calcification. Ultrasound recommended for further evaluation Electronically Signed: Tony Yadav MD at 18:14 EST , EKG Initial EKG: Attestation: I personally reviewed and interpreted this EKG as follows: Comments: Sinus rhythm with rate of 87 bpm with incomplete right bundle branch block Discharge Plan Triage Chief Complaint: Shortness of Breath ED Provider: Rosina Olivera Dx/Rx/DC Orders Clinical Impression: Asthmatic bronchitis, Acute dyspnea, Abdominal pain Instructions: ED Abdominal Pain Unkn Cause Fem, ED Bronchitis with Wheezing (Adult), ED Dyspnea Prescriptions: New doxycycline monohydrate 100 mg capsule 100 mg PO BID Qty: 20 0RF prednisone 20 mg tablet 20 mg PO BID Qty: 10 0RF No Action estradiol 1 mg tablet 1.5 mg PO DAILY Qty: 45 12RF trazodone 100 mg tablet 100 mg PO QHS PRN (Reason: insomnia) Qty: 30 12RF prednisone 10 mg tablet 10 mg PO DIRECTED Qty: 30 0RF Rx Instructions: 4 tablets daily x3 days, then 3 tablets daily x3 days, then 2 tablets daily x3 days, then 1 tablet daily x3 days cyclobenzaprine 10 mg tablet 10 mg PO TID PRN (Reason: muscle spasm) Qty: 20 0RF Primary Care Provider: Yordan Anton Referrals: Yordan Anton MD [Primary Care Provider] - 3-5 Days Friend,DO Jose [Med Staff - Active Staff] - 3-5 Days Disposition Disposition: Home, Self Care Discharge Date/Time: 08/08/23 19:06
[2023-08-08] MEDS: Ipratropium/Albuterol Sulfate 3 ML AMPUL.NEB INHALATION (16:56)
[2023-08-08] MEDS: 0.9% Normal Saline (1000mL) 1,000 ML 150 ML IV (16:56)
[2023-08-08 17:03] VITALS: PULSE 86; RESP 15
[2023-08-08 17:06] LABS: Absolute Lymphocyte Count 2.71 X10^3/uL (0.83-4.51); Absolute Neutrophil Count 6.1 X10^3/uL (2.0-7.7); Basophil# 0.07 X10^3/uL; Basophil% 0.7 % (0-1); Eosinophil# 0.44 X10^3/uL; Eosinophils% 4.2 % (0-5); Hematocrit 42.6 % (37-47); Hemoglobin 14.1 g/dL (12.0-15.0); Lymphocyte # 2.71 X10^3/ul (0.83-4.51); Lymphocyte % 25.9 % (19-41); Mean Corp Hgb Conc 33.1 g/dL (32-36); Mean Corpuscular Hgb 28.9 pg (27.0-32.0); Mean Corpuscular Volume 87.3 fL (81-99); Mean Platelet Vol. 9.8 fl (6.2-12.0); Monocyte% 10.5 % (0-10); NRBC Flagged by Analyzer 0 % (0-5); Neutrophil % 58.2 % (47-70); Platelet Count 322 K/mm3 (150-450); RBC Distribution Width SD 45.1 fl (35.1-43.9); Red Blood Count 4.88 M/mm3 (4.2-5.4); White Blood Count 10.5 K/mm3 (4.4-11.0)
[2023-08-08 17:22] LABS: ALB/GLOB Ratio 1.1 RATIO (0.9-2.4); AST(SGOT) 22 U/L (15-37); Alanine Aminotransfer ALT/SGPT 40 U/L (13-56); Albumin, Serum 3.8 g/dL (3.2-5.0); Alkaline Phosphatase 76 U/L (45-117); Anion Gap 4 (5-15); BUN 14 mg/dL (7-18); BUN/Creat Ratio 14.8 RATIO (10-20); Calcium,Total 9.3 mg/dL (8.5-10.1); Chloride 109 mmol/L (98-107); Creatinine, Serum 0.94 mg/dL (0.55-1.02); EST Glomerular Filtration Rate 67 mL/min (>60); Est Glom Filt Rate - Afr Amer 81 mL/min (>60); Estimated Creatinine Clearance 76.05 ml/min; Globulin 3.4 g/dL (2.2-4.2); Glucose 92 mg/dL (74-106); Lipase 40 U/L (13-75); Potassium 3.8 mmol/L (3.5-5.1); Protein, Total 7.2 g/dL (6.4-8.2); Sodium Level 139 mmol/L (136-145); Troponin-I HS 6 pg/mL (3.0-54.0)
--- NOTE | 2023-08-08 17:25 | CT_ITS ---
STUDY: CT ABDOMEN AND PELVIS WITH CONTRAST REASON FOR EXAM: Female, 47 years old. abdominal pain RADIATION DOSAGE (If Supplied By Facility): CTDIvol = ( 11.69 ) mGy, DLP = ( 1110.87 ) mGycm TECHNIQUE: Transaxial images were obtained from the dome of the diaphragm to the symphysis pubis without oral contrast. IV 100mL Isovue-370 was administered. Sagittal and coronal images were reconstructed. Individualized dose optimization techniques were used for this CT. COMPARISON: July 18, 2018 FINDINGS: Small patchy groundglass density in the right lower lobe. Liver is normal size and homogeneous. There is a very tiny hypoattenuated density in the anterior segment of the right lobe measuring under a centimeter in size of uncertain significance and a similar-appearing one in the posterior segment. Bile ducts are nondilated.. Normal gallbladder and extrahepatic biliary system. Normal spleen. Normal pancreas. Normal bilateral adrenal glands. Normal right kidney. Normal left kidney. Normal visualized stomach. Normal small intestine. Normal colon. The appendix is visualized and appears normal. Minor atherosclerotic change of the aorta without evidence for aneurysm Normal inferior vena cava. Normal retroperitoneum. Normal urinary bladder. Uterus not visualized consistent with hysterectomy There is a metallic clip in the soft tissues of the left anterior lateral pelvic wall. Lumbar spine demonstrates mild spondylosis. Grade 1 spondylolisthesis at L4-5 CT/Abdomen/Pelvis W IV Cont ONLY IMPRESSION: No acute abnormalities within the abdomen or pelvis status post hysterectomy. Tiny hypoattenuated densities in the right lobe of the liver too small to characterize. This may be further assessed with MRI if clinically warranted Incidental finding of metallic clip in the soft tissues of left anterior lateral pelvic wall. Electronically Signed: Tony Yadav MD at 18:22 EST ,
--- NOTE | 2023-08-08 17:25 | CT_ITS ---
STUDY: CTA CHEST REASON FOR EXAM: Female, 47 years old. dyspnea, elevated d-dimer RADIATION DOSAGE (If Supplied By Facility): CTDIvol = ( 11.69 ) mGy, DLP = ( 1110.87 ) mGycm TECHNIQUE: The examination was performed with the intravenous administration of IV 100mL Isovue-370. Post-processing of the angiographic images was performed, with multiplanar reformation and 3D reconstruction. Individualized dose optimization techniques were used for this CT. COMPARISON: None. FINDINGS: Normal enhancement of the main pulmonary artery and right and left pulmonary arteries. Normal enhancement of the bilateral peripheral pulmonary arteries. There is no demonstrated pulmonary embolism. Normal thoracic aorta and visualized great vessels. There is no demonstrated aortic dissection. Normal heart and pericardium. Normal mediastinum. Normal hilar regions. Tiny solid nodule with calcification in the right lobe of the thyroid. Normal visualized trachea and bronchi. The lungs are well expanded. Subtle patchy groundglass opacity in the posterior medial aspect of the right lower lobe of indeterminate significance although cannot exclude inflammatory change. Lungs are otherwise clear. Normal pleura. Normal chest wall structures. Dorsal spine demonstrates degenerative change. CT/CTA Chest W/WO Contrast IMPRESSION: Subtle patchy groundglass density at the right base of uncertain significance possibly inflammatory. No evidence for pulmonary embolus. Incidental finding of tiny solid nodule in the right lobe of thyroid demonstrating focus of calcification. Ultrasound recommended for further evaluation Electronically Signed: Tony Yadav MD at 18:14 EST ,
[2023-08-08] MEDS: Albuterol Sulfate 8 gm Inhaler (60 puffs) 2 PUFF INHALATION (19:03)
[2023-08-08 19:05] VITALS: BP 135/77; PULSE 81; RESP 16; TEMP 36.7; O2SAT 97
== END 2023-08-08 19:06 | disposition home or self-care (01) ==
PROVIDERS: Emergency Provider Emergency Medicine; PCP Internal Medicine; Visit Provider Emergency Medicine
DX: R06.02 Shortness of breath (principal); J45.909 Unspecified asthma, uncomplicated; R10.11 Right upper quadrant pain; Z90.710 Acquired absence of both cervix and uterus; F17.210 Nicotine dependence, cigarettes, uncomplicated
CPT/HCPCS: 71275; 74177; 80053; 83690; 83880; 84484; 85025; 85379; 87631; 93005; 94640; 96360; 96361; 99284; J7030; Q9967; A4216

== ENCOUNTER → 2023-08-09 | Outpatient (CLI) | payer BC, SELFPAY ==
[2023-08-09 16:40] LABS: T4 Free Direct 0.87 ng/dL (0.76-1.46); Thyroid Stim Hormone (TSH) 0.54 uIU/mL (0.358-3.74)
== END | disposition home or self-care (01) ==
LOC: BIMLAB 14:25
PROVIDERS: PCP Internal Medicine; Visit Provider Nurse Practitioner
DX: E04.1 Nontoxic single thyroid nodule (principal)
CPT/HCPCS: 36415; 84439; 84443

== ENCOUNTER → 2023-08-28 | Outpatient (CLI) | payer BC, SELFPAY ==
--- NOTE | 2023-08-28 06:50 | US_ITS ---
STUDY: THYROID ULTRASOUND REASON FOR EXAM: Female, 47 years old. Thyroid right nodule -- F/U CT TECHNIQUE: Ultrasound evaluation of the thyroid was performed with real-time and static moreno-scale imaging. COMPARISON: None. FINDINGS: RIGHT LOBE: The right lobe of the thyroid gland measures 4.8 cm x 1.8 cm x 1.4 cm. There is a homogeneous echotexture. There is an 8 mm x 8 mm x 6 mm hypoechoic solid nodule with peripheral calcification and shadowing in the mid pole. This also evidence of a 5 mm x 5 mm x 4 mm hypoechoic solid nodule as well as a 4 mm x 4 mm x 3 mm solid nodule in the right lobe. LEFT LOBE: The left lobe of the thyroid gland measures 4.5 cm x 1.4 cm x 1 cm. There is a homogeneous echotexture. There is a 6 mm x 5 mm x 3 mm cystic nodule in the lower pole of the left lobe. A similar appearing hypoechoic anechoic nodule consistent with a cyst is seen in the lower pole measuring 5 mm x 4 mm x 3 mm. ISTHMUS: The isthmus measures 3 mm. The regional lymph nodes are normal. US/Thyroid IMPRESSION: 2 subcentimeter cysts in the left lobe of the thyroid. Hypoechoic nodules in the right lobe as described. The largest measures 8 mm x 8 mm x 6 mm. Peripheral calcification is seen. Follow up sonogram in one year is recommended. Electronically Signed: Harjit Diamond MD at 14:39 EDT ,
== END | disposition home or self-care (01) ==
PROVIDERS: PCP Internal Medicine; Referring Provider Nurse Practitioner; Visit Provider Nurse Practitioner
DX: R06.00 Dyspnea, unspecified (principal)
CPT/HCPCS: 76536; 94060; 94726; 94729

== ENCOUNTER → 2024-02-05 | Outpatient (CLI) | payer OTHER, SELFPAY ==
[2024-02-05 16:48] LABS: Absolute Lymphocyte Count 2.61 X10^3/uL (0.83-4.51); Absolute Neutrophil Count 5.2 X10^3/uL (2.0-7.7); Basophil# 0.08 X10^3/uL; Basophil% 0.9 % (0-1); Eosinophil# 0.25 X10^3/uL; Eosinophils% 2.8 % (0-5); Hemoglobin 13.3 g/dL (12.0-15.0); Lymphocyte # 2.61 X10^3/ul (0.83-4.51); Lymphocyte % 29.2 % (19-41); Mean Corp Hgb Conc 32.4 g/dL (32-36); Mean Corpuscular Hgb 28.6 pg (27.0-32.0); Mean Corpuscular Volume 88.2 fL (81-99); Mean Platelet Vol. 10.3 fl (6.2-12.0); Monocyte# 0.75 X10^3/uL; Monocyte% 8.4 % (0-10); NRBC Flagged by Analyzer 0 % (0-5); Neutrophil # 5.23 X10^3/uL (2.7-7.7); Neutrophil % 58.4 % (47-70); Platelet Count 300 K/mm3 (150-450); RBC Distribution Width CV 14.6 % (11.6-14.6); RBC Distribution Width SD 46.6 fl (35.1-43.9); Red Blood Count 4.65 M/mm3 (4.2-5.4)
[2024-02-05 17:25] LABS: Cholesterol 271 mg/dL (200); High Density Lipoprotein 53 mg/dL; Rheumatoid Factor < 10.0 IU/mL (<15); Triglycerides 229 mg/dL; Very Low Density Lipoprotein 46 mg/dL (5-40)
[2024-02-05 17:58] LABS: Hemoglobin A1c 5.3 % (3.8-5.6)
[2024-02-07 13:08] LABS: ANTINUCLEAR ANTIBODIES DIRECT Negative (Negative)
== END | disposition home or self-care (01) ==
LOC: BIMLAB 15:56
PROVIDERS: Nurse Practitioner; PCP Internal Medicine; Referring Provider Internal Medicine; Visit Provider Internal Medicine
DX: Z00.00 Encounter for general adult medical examination without abnormal findings (principal); R06.00 Dyspnea, unspecified; M25.50 Pain in unspecified joint; K21.9 Gastro-esophageal reflux disease without esophagitis
CPT/HCPCS: 36415; 80061; 83036; 85025; 86038; 86225; 86235; 86431

== ENCOUNTER 2024-02-14 10:54 | Outpatient (CLI) | payer OTHER, SELFPAY ==
[2024-02-14 11:57] LABS: Erythrocyte Sedimentation Rate 5 mm/hr (0-30)
[2024-02-14 12:16] LABS: Vitamin B12 395 pg/mL (211-911); Vitamin D,25 Hydroxy 34.2 ng/mL
[2024-02-14 12:46] LABS: ALB/GLOB Ratio 1.2 RATIO (0.9-2.4); AST(SGOT) 17 U/L (15-37); Alanine Aminotransfer ALT/SGPT 26 U/L (13-56); Albumin, Serum 4.1 g/dL (3.2-5.0); Alkaline Phosphatase 74 U/L (45-117); Anion Gap 5 (5-15); BUN 16 mg/dL (7-18); BUN/Creat Ratio 16.2 RATIO (10-20); CRP 5.08 mg/L (0.0-3.0); Calcium,Total 9.4 mg/dL (8.5-10.1); Chloride 109 mmol/L (98-107); Cholesterol 270 mg/dL (200); Creatinine, Serum 0.99 mg/dL (0.55-1.02); EST Glomerular Filtration Rate 63 mL/min (>60); Est Glom Filt Rate - Afr Amer 77 mL/min (>60); Ferritin 188 ng/mL (8-252); Free T3 2.9 pg/mL (2.18-3.98); Globulin 3.3 g/dL (2.2-4.2); Glucose 96 mg/dL (74-106); High Density Lipoprotein 56 mg/dL; Iron 107 ug/dL (50-170); Iron Binding Capacity,Total 270 ug/dL (250-450); LDH 223 U/L (84-246); PERCENT IRON SATURATION 39.6 % (15.0-55.0); Protein, Total 7.4 g/dL (6.4-8.2); Sodium Level 140 mmol/L (136-145); T4 Free Direct 0.96 ng/dL (0.76-1.46); Triglycerides 107 mg/dL; Very Low Density Lipoprotein 21 mg/dL (5-40)
[2024-02-19 14:09] LABS: ACCA 7 units (0-90); ALCA 1 units (0-60); AMCA 49 units (0-100); Copper, Serum or Plasma 125 ug/dL (80-158); Cytoplasmic Ab (C-ANCA) <1:20 titer (Neg:<1:20); Endomysial Antibody IgA Negative (Negative); Immunoglobulin A 102 mg/dL (87-352); Perinuclear Ab (P-ANCA) <1:20 titer (Neg:<1:20); gASCA 1 units (0-50); t-Transglutaminase IgA <2 U/mL (0-3)
[2024-02-19 15:09] LABS: Anti-Centromere B Ab <0.2 AI (0.0-0.9); Anti-Chromatin <0.2 AI (0.0-0.9); Anti-Jo <0.2 AI (0.0-0.9); Anti-Scleroderma-70 AB <0.2 AI (0.0-0.9); Anti-dsDNA Ab 1 IU/mL (0-9); Beef <0.10 kU/L (Class 0); Chocolate <0.10 kU/L (Class 0); Codfish <0.10 kU/L (Class 0); Corn <0.10 kU/L (Class 0); Egg, Whole <0.10 kU/L (Class 0); Milk (Cow) <0.10 kU/L (Class 0); Mussels <0.10 kU/L (Class 0); Peanut <0.10 kU/L (Class 0); Pork <0.10 kU/L (Class 0); RNP Ab <0.2 AI (0.0-0.9); SJOGREN'S Anti-SS-A test < 0.2 AI (0.0-0.9); SJOGREN'S Anti-SS-B test < 0.2 AI (0.0-0.9); Salmon <0.10 kU/L (Class 0); Shrimp <0.10 kU/L (Class 0); Smith Ab <0.2 AI (0.0-0.9); Soybean <0.10 kU/L (Class 0); Tuna <0.10 kU/L (Class 0); Wheat <0.10 kU/L (Class 0)
== END 2024-02-14 23:59 | disposition home or self-care (01) ==
LOC: BIMLAB 10:55
PROVIDERS: PCP Internal Medicine
DX: K21.9 Gastro-esophageal reflux disease without esophagitis (principal); R10.13 Epigastric pain
CPT/HCPCS: 36415; 80053; 80061; 82306; 82525; 82607; 82728; 82784; 83516; 83540; 83550; 83615; 84425; 84439; 84443; 84481; 85652; 86003; 86005; 86036; 86140; 86225; 86235; 86255; 86256; 86671

== ENCOUNTER → 2024-03-16 | Outpatient (CLI) | payer OTHER, SELFPAY ==
[2024-03-18 05:07] LABS: Pancreatic Elastase, Fecal 732 (>200)
[2024-03-19 18:08] LABS: Calprotectin, Stool 11 ug/g (0-120); Fats, Neutral Normal (.); Fats, Total Normal (.)
== END | disposition home or self-care (01) ==
LOC: BIMLAB 08:35
PROVIDERS: PCP Internal Medicine
DX: K58.9 Irritable bowel syndrome, unspecified (principal); K21.9 Gastro-esophageal reflux disease without esophagitis; R10.13 Epigastric pain
CPT/HCPCS: 82653; 82705; 83630; 83993

== ENCOUNTER 2024-03-23 09:39 | Day surgery (SDC) | payer OTHER, SELFPAY ==
[2024-03-23] VITALS (7 sets, daily range): BP systolic 87–118; BP diastolic 51–60; PULSE 67–77; RESP 16; TEMP 36.1–36.4; O2SAT 95–97; BMI 31.6
--- NOTE | 2024-03-23 09:59 | PCM.PRE.AN2 ---
ASA Classification* ASA Classification ASA Classification: 2 Assessment & Plan Anesthesia* Anesthesia Assessment Anesthesia Assessment: Discussed sedation and/or anesthesia options, risks, benefits, and alternatives with patient/parents/legal guardian/POA. Questions invited. The patient/parents/legal guardian/POA seems to understand and agrees to proceed with anesthesia plan. Reviewed the physical assessment, medical history, allergy history and patient home medications list prior to surgery/procedure/anesthetic and documented any changes. Performed airway and anesthesia risk assessments. Anesthesia Type Anesthesia Type: MAC Anesthesia Focused Assessment* Airway Assessment Mouth opens: >3 cm Mallampati Score: II Focused Labs Anesthesia Preop lab: CBC WBC 9.0 K/mm3 (4.4-11.0) 02/05/24 15:57 RBC 4.65 M/mm3 (4.2-5.4) 02/05/24 15:57 Hgb 13.3 g/dL (12.0-15.0) 02/05/24 15:57 Hct 41.0 % (37-47) 02/05/24 15:57 Plt Count 300 K/mm3 (150-450) 02/05/24 15:57 CHEMISTRY Potassium 4.0 mmol/L (3.5-5.1) 02/14/24 10:56 Sodium 140 mmol/L (136-145) 02/14/24 10:56 Magnesium 2.0 mg/dL (1.6-2.6) 02/19/22 11:48 BUN 16 mg/dL (7-18) 02/14/24 10:56 Creatinine 0.99 mg/dL (0.55-1.02) 02/14/24 10:56 Glucose 96 mg/dL (74-106) 02/14/24 10:56 TSH 1.400 uIU/mL (0.358-3.740) 02/14/24 10:56 COAG Pre-Assessment Diagnosis/Proposed Procedure Planned Operative Procedure(s): EGD Anesthesia History Anesthesia History - state historical society director: Anesthesia History - state historical society director Hx Hospitalization No 03/18/24 11:49 Any Problems With Anesthesia No 03/18/24 11:49 Cholinesterase deficiency No 03/18/24 11:49 You/Your Family Experience No 03/18/24 11:49 fever (hyperthermia) with Relationship Recent Exposure to Contagious No 07/25/20 11:09 Disease Does patient have nerve No 03/18/24 11:49 stimulator Patient instructed to have device shut off --Does patient have Pacemaker or ICD? When Was Last Pacemaker Check QUESTION #4 FULL TEXT: You/Your Family Experience fever (hyperthermia) with Anesthesia Last Oral Intake Last Oral intake: Last Oral Intake NPO since Meds taken in AM with sips of water? Meds patient instructed to take am of surgery PONV PONV - state historical society director: PONV - state historical society director Female Yes 03/18/24 11:49 HX of Motion Sickness No 03/18/24 11:49 HX of N/V After Surgery No 03/18/24 11:49 Non-Smoker Yes 03/18/24 11:49 Duration of Surgery greater No 03/18/24 11:49 than 60 minutes Number of Risk Factors 2 03/18/24 11:49 PONV Score Moderate Risk 03/18/24 11:49 Height & Weight Height & Weight: Anesthesia: Height & Weight Height 5 ft 3 in 02/05/24 15:31 Respiratory Assessment Respiratory Assessment - state historical society director: Respiratory Tract Infection Hx - state historical society director Hx Respiratory Tract Infection No 03/18/24 11:49 STOP Sleep Apnea STOP Sleep Apnea - state historical society director: STOP Sleep Apnea - state historical society director Hx Hypertension No 03/18/24 11:49 Hx Sleep Apnea Yes 03/18/24 11:49 CPAP Yes 03/18/24 11:49 BIPAP No 03/18/24 11:49 Do you snore loudly (louder than talking or can be heard Do you often feel tired/ fatigued/ sleepy during daytime? Has anyone observed you stop breathing during sleep? STOP Results Positive 03/18/24 11:49 QUESTION #5 FULL TEXT : Do you snore loudly (louder than talking or can be heard through closed doors)? Tobacco Use History Tobacco Use History - state historical society director: Tobacco Use History - state historical society director Tobacco Use Smoking Status Current every day smoker 03/18/24 11:49 Hx Tobacco Use Yes 03/18/24 11:49 Years Smoking Packs Smoked per Day Smoking Cessation Date was within the last 15 years Hx Smoking Cessation Date Hx Smoking Cessation Counseling Hematologic Medial History Hematologic Hx - state historical society director: Hematologic Medical Hx - medical geneticist Hx of Blood Transfusion No 03/18/24 11:49 Hx of Transfusion in last 3 No 03/18/24 11:49 Months Date of Last Transfusion (if within last 3 months) Ever experience any problems No 03/18/24 11:49 with transfusion(s)? Specify any problems Hx of Preganancy in last 3 No 03/18/24 11:49 Months Nurse Filling Out Transfusion VCHRISTIN 03/18/24 11:49 & Questions: Date: 03/18/24 03/18/24 11:49 Time: 11:50 03/18/24 11:49 Patient unable to answer at this time (ie. confused, unrespo /Reproduction History /Reproductive History - state historical society director: /Reproductive Hx- state historical society director Hx Now No 03/18/24 11:49 Gestational Age (in weeks): EDC: Hx Hx Para Hx Section SAB No 03/18/24 11:49 [facility] Medical History Wears glasses Arthritis Back pain Migraine headache Gastric reflux Smoker CPAP (continuous positive airway pressure) dependence Sleep apnea History of edema Elevated blood pressure reading without diagnosis of hypertension Insomnia GERD (gastroesophageal reflux disease) Screening for colon cancer Vision problems History of pneumonia History of fracture History of PCOS History of headache History of back problems Incontinence Severe headache SOB (shortness of breath) Home Medications ?Medication ?Instructions ?Recorded ?Last Taken ?Type albuterol sulfate 90 mcg/actuation 2 puff inhalation Q6H PRN 09/09/23 Unknown Rx aerosol inhaler shortness of breath or wheezing #8.5 grams estradiol 1 mg tablet 1.5 mg (1.5 x 1 mg) PO DAILY #45 02/11/24 Unknown Rx tabs atorvastatin 10 mg tablet 10 mg PO QHS #30 tabs 02/18/24 Unknown Rx trazodone 100 mg tablet 50 - 100 mg PO QHS PRN insomnia 03/18/24 Unknown History Allergy/AdvReac Type Severity Reaction Status Date / Time hydrocodone Allergy Mild Itching Verified 03/18/24 11:42 oxycodone Allergy Mild Itching Verified 03/18/24 11:42 Opioids - Morphine Analogues Allergy Itching Verified 03/18/24 11:42 Penicillins Allergy Anaphylaxis Verified 03/18/24 11:42 doxycycline AdvReac Severe Vomiting Verified 03/18/24 11:42 Family History Mother Heart disease Alcoholism Angina at rest Arthritis Lung cancer Myocardial infarction Hypertension Brother Alcoholism Asthma Arthritis Father Arthritis Diabetes Hypertension Sister Alcoholism Arthritis Lung cancer Other Cancer Surgical History S/P right knee surgery S/P laparoscopic assisted vaginal hysterectomy (LAVH) (~08/14/18) History of wisdom tooth extraction, class II edentulism H/O tubal ligation History of endometrial ablation History of carpal tunnel release Social History Smoking Status: Current every day smoker tobacco type: cigarettes alcohol intake: current details: social substance use type: does not use caffeine: Yes what type of physical activity do you participate in: none and walking seatbelt use: always do you feel safe at home: Yes additional social history: Brian Velazco Patient is laid off for the winter Review of Systems (Anesthesia) ROS Narrative System reviewed and no additional complaints, except as documented.
--- NOTE | 2024-03-23 10:33 | HP.PCM_ITS ---
History and Physical Date of Admission: 03/23/24 OV 02.13.24 Pt here for GERD. Pt reports she experiences pressure in abdomen for the past couple months any time she eats or drinks anything. Pt reports swelling in ankles. Denies blood in stools. Takes omeprazole and Carafate daily with little improvement. [facility] Medical History (Updated 02/13/24 @ 16:57 by LEONARDO Lagos) Elevated blood pressure reading without diagnosis of hypertension Insomnia GERD (gastroesophageal reflux disease) Screening for colon cancer Vision problems History of pneumonia History of fracture History of PCOS History of headache History of back problems Incontinence Severe headache SOB (shortness of breath) Surgical History S/P right knee surgery S/P laparoscopic assisted vaginal hysterectomy (LAVH) (~08/14/18) History of wisdom tooth extraction, class II edentulism H/O tubal ligation History of endometrial ablation History of carpal tunnel release Family History Mother Heart disease Alcoholism Angina at rest Arthritis Lung cancer Myocardial infarction HypertensionBrother Alcoholism Asthma ArthritisFather Arthritis Diabetes HypertensionSister Alcoholism Arthritis Lung cancerOther Cancer Social History Smoking Status: Current every day smoker tobacco type: cigarettes alcohol intake: current details: social substance use type: does not use caffeine: Yes what type of physical activity do you participate in: none and walking seatbelt use: always do you feel safe at home: Yes additional social history: Brian Velazco Patient is laid off for the winter [facility] HPI Chief Complaint: 4m f/u Details: MATTEO GLEASON, is a 48 F who presents to the office today for establishment with [facility] for complaints of early satiety, consistent heartburn, and severe abdominal bloating. She is able to point to upper epigastric area for the location of heartburn with 1 finger. Reports the heartburn is not related to food consumption, denies alcohol intake except for very rare occasions, and is a current smoker of 3 to 4 cigarettes per day, formerly smoking 2-3 packs per day since she was 9 years old. States the heartburn is not induced by activity or relieved by rest. Reports early satiety started 6 months ago; states that the full feeling can become so severe she gets nauseous from it. She reports that she gets random attacks of feeling so bloated that she feels like she's being strangulated from the inside, feels like a seatbelt that's on too tight. This started 2 months ago. She states that the only thing that relieves this feeling is laying herself flat. She denies excessive belching and doesn't think her flatulence is excessive. She reports daily BM with complete evacuation. Denies heavy consumption of fatty meals or high sugar content. Does admit to chewing a lot of gum since she's cutting back on cigarettes. Denies vomiting, fever, chills, exposure to ill persons. ROS Const Constitutional: Positive for anorexia, fatigue, headache(s), decreased energy and weight change; No chills, fever(s), night sweats or abnormal sleep pattern Eyes Eyes: No change in vision ENT ENT: Positive for headache(s); No abnormal hearing or difficulty swallowing Resp Respiratory: No cough Cardio Cardiology: No chest pain at rest, chest pain with exertion, shortness of breath or dyspnea on exertion Gastro GI: Positive for abdominal pain, bloating, heartburn, excessive flatus and nausea/dyspepsia; No belching, change in bowel habits, change in stool character, coffee ground emesis, constipation, cramping, diarrhea, difficulty swallowing, feeling full early, incontinent of stools, Vomiting blood/hematemesis, Blood in stool, loose stools, Black,tarry stools, pain with swallowing, vomiting or other Genitourinary-Female: No difficulty urinating Musc Musculoskeletal: Positive for joint swelling, muscle weakness and stiffness; No abnormal gait or joint pain Skin Skin: No yellowing of the eye or itchy eyes Neuro Neurology: Positive for headache(s); No abnormal gait or abnormal hearing Psych Psychiatric: No abnormal sleep pattern, No anxiety and No depression Endo Endocrine: Positive for fatigue and weight change; No change in body appearance, cold intolerance or heat intolerance Aller/Imm Allergy/Immunologic: No food intolerance or itchy eyes Jermaine/Lymp Hematologic/Lymphatic: No easy bleeding or easy bruising Exam Const General: cooperative, healthy appearing and comfortable Nutritional Appearance: obese Orientation: alert and oriented x3 HENMT Head: normal to inspection Ears: hearing grossly normal bilaterally Nose: external nose normal Face and sinus: normal facial exam and face symmetric Eyes General: appearance normal, both eyes and all related structures Neck Neck: normal visual inspection and full ROM Neck mass: No Chest Chest palpation & inspection: normal inspection of the chest Resp Effort & Inspection: normal respiratory effort, able to speak in complete sentences and symmetric chest movement GI Inspection: distended Auscultation: normal bowel sounds Palpation: soft and no hepatosplenomegaly Musc Musculoskeletal: No joint redness or decreased range of motion Skin General: no rashes or lesions noted Neuro General: patient alert, patient awake and patient oriented x3 Cognition: normal cognition Speech: speech normal Gait: normal gait Extrem General: normal to inspection and full ROM Psych Appearance: grossly normal and well kempt Mental Status: mental status grossly normal Mood: congruent mood Affect: normal affect Speech and Movement: speech and movement normal Attitude: cooperative Thought Process: normal Judgment: judgment good Assessment and Plan Assessment and Plan (1) GERD (gastroesophageal reflux disease): Status: Chronic Qualifiers: Esophagitis presence: esophagitis presence not specified Qualified Code(s): K21.9 - Gastro-esophageal reflux disease without esophagitis (2) Epigastric abdominal pain: Status: Chronic Plan: MATTEO GLEASON, is a 48 F who presents to the office today for establishment with [facility] for complaints of early satiety, consistent heartburn, and severe abdominal bloating. Differential diagnoses include: GERD, eosinophilic esophagitis, gastritis, gastroparesis, SIBO. * order blood work for inflammation, food allergy, vitamin malabsorption, thyroid hormone level * order gastric emptying study to evaluate early satiety * order EGD to evaluate esophagus, stomach and duodenum * continue omeprazole daily in AM as ordered, may use famotidine OTC 1-2x/day for breakthrough heartburn, taking at least one dose a HS * continue sucralfate as previously ordered Orders: Orders Gastric Emptying Study Today K21.9 - Gastro-esophageal reflux disease without esophagitis, R10.13 - Epigastric pain Celiac Disease Profile Today K21.9 - Gastro-esophageal reflux disease without esophagitis, R10.13 - Epigastric pain Comprehensive Metabolic Profil Today K21.9 - Gastro-esophageal reflux disease without esophagitis, R10.13 - Epigastric pain Copper, Serum or Plasma Today K21.9 - Gastro-esophageal reflux disease without esophagitis, R10.13 - Epigastric pain Ferritin Today K21.9 - Gastro-esophageal reflux disease without esophagitis, R10.13 - Epigastric pain LDH Today K21.9 - Gastro-esophageal reflux disease without esophagitis, R10.13 - Epigastric pain Erythrocyte Sed Rate Today K21.9 - Gastro-esophageal reflux disease without esophagitis, R10.13 - Epigastric pain CRP Today K21.9 - Gastro-esophageal reflux disease without esophagitis, R10.13 - Epigastric pain Stool Lactoferrin/WBC Today K21.9 - Gastro-esophageal reflux disease without esophagitis, K58.9 - Irritable bowel syndrome without diarrhea, R10.13 - Epigastric pain Pancreatic Elastase, Fecal Today K21.9 - Gastro-esophageal reflux disease without esophagitis, R10.13 - Epigastric pain Calprotectin, Stool Today K21.9 - Gastro-esophageal reflux disease without esophagitis, R10.13 - Epigastric pain Fecal Fat, Qualitative Today K21.9 - Gastro-esophageal reflux disease without esophagitis, R10.13 - Epigastric pain Vitamin D,25 Hydroxy Today K21.9 - Gastro-esophageal reflux disease without esophagitis, R10.13 - Epigastric pain Vitamin B1, Thiamine Today K21.9 - Gastro-esophageal reflux disease without esophagitis, R10.13 - Epigastric pain Vitamin B12 Today K21.9 - Gastro-esophageal reflux disease without esophagitis, R10.13 - Epigastric pain Iron+Iron Binding Capacity Today K21.9 - Gastro-esophageal reflux disease without esophagitis, R10.13 - Epigastric pain Allergen, Food Profile 14 Today K21.9 - Gastro-esophageal reflux disease without esophagitis, R10.13 - Epigastric pain NICOLE Comprehensive Panel Today K21.9 - Gastro-esophageal reflux disease without esophagitis, R10.13 - Epigastric pain ANCA Today K21.9 - Gastro-esophageal reflux disease without esophagitis, R10.13 - Epigastric pain Free T3 Today K21.9 - Gastro-esophageal reflux disease without esophagitis, R10.13 - Epigastric pain IBD Expanded Profile Today K21.9 - Gastro-esophageal reflux disease without esophagitis, R10.13 - Epigastric pain T4 Free Direct Today K21.9 - Gastro-esophageal reflux disease without esophagitis, R10.13 - Epigastric pain Thyroid Stim Hormone (TSH) Today K21.9 - Gastro-esophageal reflux disease without esophagitis, R10.13 - Epigastric pain Lipid Profile Today K21.9 - Gastro-esophageal reflux disease without esophagitis, R10.13 - Epigastric pain I have examined the patient and the H&P has been reviewed. There are no clinical changes since date of exam.
--- NOTE | 2024-03-23 11:36 | PCM.POST.ANE ---
Anesthesia: Postop Eval I Current Vital Signs Temperature: 97.6 F Pulse Rate: 67 Blood Pressure: 87/51 Respiratory Rate: 16 Pulse Ox: 97 Oxygen Delivery Method: Room Air Assessment Airway patent: Yes Spontaneous unlabored respirations: Yes Mental status: Asleep nausea: No Vomiting: No Anesthesia Complication: No Fluid Hydration Crystalloid volume administer (ml): 20 Total IV fluid infused: 20 Progress Note Anesthesia document: Postop Eval 1 completed: Yes
--- NOTE | 2024-03-23 11:37 | OP.CCLET_ITS ---
03/23/2024 Yordan Anton MD [address] [place] [address] Re : Upper GI endoscopy procedure for Bev Montez Dear Dr. Anton This procedure was performed on Saturday, March 23, 2024. My impressions and recommendations are as follows: Impressions : - LA Grade B reflux esophagitis with no bleeding. Biopsied. - Medium-sized hiatal hernia. - Chronic bile duodenitis. Biopsied. Recommendations : - Discharge patient to home. - Resume previous diet. - Continue present medications. - Await pathology results. - Use Protonix (pantoprazole) 40 mg PO BID for 3 months. - Use Protonix (pantoprazole) 40 mg PO BID for 3 months. My findings are described in the full procedure note, which is enclosed. If I can be of further assistance, please feel free to contact me at . Sincerely, Jose Friend, 03/23/2024 11:37:05 AM This report has been signed electronically.
--- NOTE | 2024-03-23 11:37 | OP.EGD_ITS ---
Patient Name: Bev Montez Procedure Date: 03/23/2024 11:14 AM Date of : 1975 Age: 48 Procedure: Upper GI endoscopy Indications: Epigastric abdominal pain, Functional Dyspepsia, Suspected esophageal reflux Providers: Jose Britt DO Medicines: Monitored Anesthesia Care Patient Profile: This is a 48 year old female. Refer to note in patient chart for documentation of history and physical. Patient has symptoms of acute epigastric abdominal pain, acute heartburn, chronic heartburn and chronic nausea. Complications: No immediate complications. Procedure: Pre-Anesthesia Assessment: - Prior to the procedure, a History and Physical was performed, and patient medications and allergies were reviewed. The patient is competent. The risks and benefits of the procedure and the sedation options and risks were discussed with the patient. All questions were answered and informed consent was obtained. Patient identification and proposed procedure were verified. Mental Status Examination: alert and oriented. Airway Examination: normal oropharyngeal airway and neck mobility. Respiratory Examination: clear to auscultation. CV Examination: normal. Prophylactic Antibiotics: The patient does not require prophylactic antibiotics. Prior Anticoagulants: The patient has taken no anticoagulant or antiplatelet agents. ASA Grade Assessment: II - A patient with mild systemic disease. After reviewing the risks and benefits, the patient was deemed in satisfactory condition to undergo the procedure. The anesthesia plan was to use monitored anesthesia care (MAC). Immediately prior to administration of medications, the patient was re-assessed for adequacy to receive sedatives. The heart rate, respiratory rate, oxygen saturations, blood pressure, adequacy of pulmonary ventilation, and response to care were monitored throughout the procedure. The physical status of the patient was re-assessed after the procedure. After obtaining informed consent, the endoscope was passed under direct vision. Throughout the procedure, the patient's blood pressure, pulse, and oxygen saturations were monitored continuously. The Endoscope was introduced through the mouth, and advanced to the second part of duodenum. The upper GI endoscopy was accomplished without difficulty. The patient tolerated the procedure well. Scope In: 11:24:12 AM Scope Out: 11:27:47 AM Total Procedure Duration Time 0 hours 3 minutes 35 seconds Findings: LA Grade B (one or more mucosal breaks greater than 5 mm, not extending between the tops of two mucosal folds) esophagitis with no bleeding was found 35 to 38 cm from the incisors. Biopsies were taken with a cold forceps for histology. Verification of patient identification for the specimen was done. Estimated blood loss was minimal. A medium-sized hiatal hernia was present. No other significant abnormalities were identified in a careful examination of the stomach. Patchy moderate inflammation characterized by erosions, erythema, friability and granularity was found in the duodenal bulb, in the first portion of the duodenum and in the second portion of the duodenum. Biopsies were taken with a cold forceps for histology. Verification of patient identification for the specimen was done. Estimated blood loss was minimal. Impression: - LA Grade B reflux esophagitis with no bleeding. Biopsied. - Medium-sized hiatal hernia. - Chronic bile duodenitis. Biopsied. Recommendation: - Discharge patient to home. - Resume previous diet. - Continue present medications. - Await pathology results. - Use Protonix (pantoprazole) 40 mg PO BID for 3 months. - Use Protonix (pantoprazole) 40 mg PO BID for 3 months. Procedure Code(s): --- Professional --- 72727, Esophagogastroduodenoscopy, flexible, transoral; with biopsy, single or multiple CPT copyright 2021 [employer]. All rights reserved. The codes documented in this report are preliminary and upon medical geneticist review may be revised to meet current compliance requirements. Jose Britt DO 03/23/2024 11:37:05 AM This report has been signed electronically. Number of Addenda: 0 Note Initiated On: 03/23/2024 11:14 AM
--- NOTE | 2024-03-23 13:40 | EGD_PTH ---
PATIENT: MATTEO GLEASON LOC: EN U#:[id number] AGE/SX: 48/F ROOM: RE03/23/[address]: Dr. Jose Britt DO : 1975 BED: DIS: 03/23/2024 SPEC #: [id number] RECD: 03/23/24 13:40 STATUS: SHIELA EMMA #: [id number] KASSY: 03/23/24 13:[address]: Jose Britt DEPT: SURGICAL PATHOLOGY RECD BY: Michele Sanchez ENTERED: 03/23/24 14:06 SP TYPE: EGD BIOPSY ATIF DR: Dr. Yordan Anton MD Tissues: A - Esophagus, NOS B - Duodenum, NOS Procedures: Special Stain Group I Surgery Specimen Level IV Alcian Blue/PAS (control) HEADER OPERATION: EGD with biopsies PRE-OP DIAGNOSIS: Abdominal pain, GERD TISSUE SUBMITTED: A- Distal esophagus biopsy, B- Duodenum biopsy MICROSCOPIC DIAGNOSIS A. Distal esophagus, biopsy: Fragments of gastroesophageal mucosa with chronic inflammation. Intestinal metaplasia (goblet cell metaplasia) not identified. See comment. B. Duodenum, biopsy: Fragments of duodenal mucosa, no pathologic diagnosis. 03/24/2024 COMMENT A. Alcian blue/PAS stain with matched control is used in the evaluation of the specimen. MICROSCOPIC DESCRIPTION Slides are reviewed. GROSS DESCRIPTION A. Received in fixative is one container labeled with the patient's name and designated Distal esophagus biopsy. The specimen consists of multiple irregular fragments of light linares soft tissue that in aggregate measure 2.0 x 0.3 x 0.1 cm. The specimen is totally submitted in one cassette. B. Received in fixative is one container labeled with the patient's name and designated Duodenum biopsy. The specimen consists of multiple irregular fragments of light linares soft tissue that in aggregate measure 1.5 x 0.5 x 0.1 cm. The specimen is totally submitted in one cassette. 03/23/2024 TC:3 CPT:[id number]
--- NOTE | 2024-03-23 16:39 | PCM.POSTANE2 ---
Anesthesia Postop Eval I Sum Postop Eval Completion status Anesthesia document: Postop Eval 1 completed: Yes Anesthesia Postop Eval I Summary Anesthesia Postop Eval I Summary: Anesthesia Postop Eval I: Assessment Summary Airway patent Yes 03/23/24 11:37 [email or web address] Spontaneous unlabored Yes 03/23/24 11:37 [email or web address] respirations Mental status Asleep 03/23/24 11:37 [email or web address] nausea No 03/23/24 11:37 [email or web address] Vomiting No 03/23/24 11:37 [email or web address] Anesthesia Postop Eval I: Fluid Summary Crystalloid volume administer 20 03/23/24 11:37 [email or web address] (ml) Colloids volume administered ( ml) Blood Product volume administered (ml) Total IV fluid infused 20 03/23/24 11:37 [email or web address] Anesthesia Postop Eval I: Summary Notes Anesthesia Complication No 03/23/24 11:37 [email or web address] Anesthesia Complication Comment: Post-operative progress note Anesthesia: Postop Eval II Evaluation Mental status: Awake and Calm Pain Level: 0 nausea: No Vomiting: No Complications Anesthesia Complication: No
== END 2024-03-23 12:15 | disposition home or self-care (01) ==
LOC: EN 09:42 → AC 09:44
PROVIDERS: PCP Internal Medicine; Referring Provider Internal Medicine; Visit Provider Internal Medicine Gastroenterology
PROC: 0DJ08ZZ Inspection of Upper Intestinal Tract, Via Natural or Artificial Opening Endoscopic (ICD-10-PCS; CPT 43235; principal; 2024-03-23 10:40)
DX: K21.00 Gastro-esophageal reflux disease with esophagitis, without bleeding (principal); K44.9 Diaphragmatic hernia without obstruction or gangrene; Z90.710 Acquired absence of both cervix and uterus; F17.210 Nicotine dependence, cigarettes, uncomplicated; K29.80 Duodenitis without bleeding; Z79.899 Other long term (current) drug therapy; Z98.51 Tubal ligation status; R10.13 Epigastric pain
CPT/HCPCS: 43239; 88305; 88312; A4216; J2405

== ENCOUNTER → 2024-05-04 | Outpatient (CLI) | payer OTHER, SELFPAY ==
[2024-05-04 12:57] LABS: ALB/GLOB Ratio 1.2 RATIO (0.9-2.4); AST(SGOT) 17 U/L (15-37); Alanine Aminotransfer ALT/SGPT 25 U/L (13-56); Albumin, Serum 3.9 g/dL (3.2-5.0); Alkaline Phosphatase 78 U/L (45-117); Anion Gap 3 (5-15); BUN 13 mg/dL (7-18); BUN/Creat Ratio 14.7 RATIO (10-20); Calcium,Total 9.5 mg/dL (8.5-10.1); Chloride 108 mmol/L (98-107); Cholesterol 193 mg/dL (200); Creatinine, Serum 0.88 mg/dL (0.55-1.02); EST Glomerular Filtration Rate 72 mL/min (>60); Est Glom Filt Rate - Afr Amer 87 mL/min (>60); Globulin 3.2 g/dL (2.2-4.2); Glucose 97 mg/dL (74-106); High Density Lipoprotein 53 mg/dL; Potassium 4.3 mmol/L (3.5-5.1); Protein, Total 7.1 g/dL (6.4-8.2); Sodium Level 138 mmol/L (136-145); Triglycerides 90 mg/dL; Very Low Density Lipoprotein 18 mg/dL (5-40)
== END | disposition home or self-care (01) ==
LOC: BIMLAB 11:10
PROVIDERS: PCP Internal Medicine; Referring Provider Internal Medicine; Visit Provider Internal Medicine
DX: E78.5 Hyperlipidemia, unspecified (principal)
CPT/HCPCS: 36415; 80053; 80061

== ENCOUNTER → 2024-08-17 | Outpatient (CLI) | payer OTHER, SELFPAY ==
--- NOTE | 2024-08-17 12:06 | NM_ITS ---
PROCEDURE: GASTRIC EMPTYING STUDY REASON FOR EXAM: Early satiety. TECHNIQUE: The patient ingested a combination of 1.1 mCi of sulfur colloid in oatmeal. RADIOPHARMACEUTICAL: 1.1 mCi of sulfur colloid. COMPARISON: None. FINDINGS: The examination was carried out for 1 hour. At 1 hour, 75% of the radiopharmaceutical exited the stomach. This is normal study. NM/Gastric Emptying Study IMPRESSION: Normal gastric emptying examination. Reading Location: [facility]
== END | disposition home or self-care (01) ==
LOC: NM 11:58
PROVIDERS: PCP Internal Medicine; Referring Provider Student in an Organized Health Care Education/Training Program; Visit Provider Student in an Organized Health Care Education/Training Program
DX: R10.13 Epigastric pain (principal); K21.9 Gastro-esophageal reflux disease without esophagitis
CPT/HCPCS: 78264; A9541